=== PATIENT | female | born 1990 | race Caucasian/White ===

== ENCOUNTER 2018-01-02 13:11 | Inpatient (IN) | payer OTHER ==
[2018-01-02] MEDS ORDERED: NS 0.9% 1000 ML*IV.FLUID IV ONE (13:38)
--- NOTE | 2018-01-02 13:51 | ED ---
Substance Abuse/Use - HPI Summary HPI Summary: This pt is a 27 y/o female presenting to [facility] via EMS for detox. Per EMS, pt had vodka and snorted Xanax today. Pt states she last drank alcohol shortly before EMS picked her up. She reports [place] prescribes her Xanax. She notes she called EMS because she wants help. Additionally reports SI thoughts, stating "if no one helps me I'm going to off myself." Denies SI plan, HI thoughts/plan. Pt is requesting rehab and states "I want help." Pt reports 2 days ago she fell out of a two story window while drinking and had a head strike. She c/o lower back pain for the past 2 days s/p fall. Pt has not seen her PCP for her back pain. Additionally notes abd pain. No fever. LMP: last one was 5 months ago. Pt is unsure if there's a possibility of . PMHx ovarian cyst. Vital signs while in the room: BP is 123/78, HR is 101, O2 sat is 96. - History Of Current Complaint Chief Complaint: EDDetoxRequest Stated Complaint: ETOH Time Seen by Provider: 01/02/18 13:37 Hx Obtained From: Patient, EMS ?: No - states LMP was 5 months ago Onset/Duration of Drug/ETOH Abuse: Days Ingestion History: Type/Name Of Drug - Vodka and Xanax (snorted xanax) Overdose Characteristics: Oral - alcohol, Other - snorted Xanax Timing Of Abuse: Daily - Alcohol Severity Initially: Moderate Severity Currently: Severe Character: Anxious Aggravating Factor(s): Other - alcohol and Xanax use Alleviating Factor(s): Nothing Associated Signs And Symptoms: Other: - anxious, back pain, abd pain Related Hx: Suicidal, Suicidal: Thoughts, Suicidal: Gesture - Allergies/Home Medications Allergies/Adverse Reactions: Allergies Allergy/AdvReac Type Severity Reaction Status Date / Time No Known Allergies Allergy Verified 01/02/18 13:33 Home Medications: Home Medications Acetaminophen TAB* [Tylenol TAB*] 650 mg PO Q6H PRN 01/02/18 [History Confirmed 01/02/18] Buprenorphine HCl/Naloxone HCl [Suboxone 8 mg-2 mg Sl Film] 0.5 film SL 1800 [History Confirmed 01/02/18] Buprenorphine HCl/Naloxone HCl [Suboxone 8 mg-2 mg Sl Film] 1 film SL QAM [History Confirmed 01/02/18] Folic Acid 1 tab PO DAILY 01/02/18 [History Confirmed 01/02/18] Gabapentin CAP(*) [Neurontin 100 mg CAP(*)] 500 mg PO TID 01/02/18 [History Confirmed 01/02/18] Ibuprofen TAB* [Advil TAB*] 400 mg PO Q6H PRN 01/02/18 [History Confirmed ] Quetiapine Fumarate 1 tab PO BEDTIME 01/02/18 [History Confirmed 01/02/18] hydrOXYzine HCL TAB* [Atarax TAB 50 MG *] 1 tab PO Q6H PRN 01/02/18 [History Confirmed 01/02/18] levETIRAcetam [Levetiracetam] 500 mg PO BID 01/02/18 [History Confirmed 01/02/18 ] PMH/Surg Hx/FS Hx/Imm Hx Previously Healthy: No - bulimia, substance abuse Endocrine/Hematology History: Denies: Hx Anticoagulant Therapy, Hx Diabetes, Hx Thyroid Disease Cardiovascular History: Denies: Hx Hypertension, Hx Pacemaker/ICD Respiratory History: Denies: Hx Asthma, Hx Chronic Obstructive Pulmonary Disease (COPD) GI History: Denies: Hx Ulcer History: Denies: Hx Renal Disease Neurological History: Reports: Hx Headaches, Hx Seizures - on keppra Denies: Hx Dementia Psychiatric History: Reports: Hx Eating Disorder, Hx Depression, Hx Substance Abuse - ETOH - Surgical History Surgery Procedure, Year, and Place: T&A. EAR TUBES Infectious Disease History: No Infectious Disease History: Denies: Hx Clostridium Difficile, Hx Hepatitis, Hx Human Immunodeficiency Virus (HIV), Traveled Outside the [place] in Last 30 Days - Family History Known Family History: Negative: Cardiac Disease, Hypertension, Diabetes - Social History Alcohol Use: Daily Alcohol Amount: last time was today Substance Use Type: Reports: Cocaine, Marijuana Substance Use Comment - Amount & Last Used: snorted Xanax today Smoking Status (MU): Current Every Day Smoker Review of Systems Negative: Fever, Chills Cardiovascular: Negative Respiratory: Negative Positive: Abdominal Pain Musculoskeletal: Other - low back pain Neurological: Negative Psychological: Other - SI thoughts Positive: Anxious. Negative: Other - SI plan, HI thoughts/plan All Other Systems Reviewed And Are Negative: Yes Physical Exam - Summary Physical Exam Summary: Appearance: Well-appearing, moderate pain distress, well-nourished Skin: Warm, color reflects adequate perfusion, dry. Scab on mons pubis with surrounding redness about 3 cm. Missing pubic hair in that area. Head: Normal Head/Face inspection, atraumatic Eyes: Conjunctiva clear, PERRL, EOMI ENT: Normal inspection Neck: Supple, no nodes, no JVD, nontender spines Respiratory: Lungs clear, normal breath sounds, no respiratory distress Cardio: Tachycardic, No murmur, pulses normal, brisk capillary refill, ribs nontender on palpation Abdomen: Soft, nontender, no masses, no spleen tip Bowel sounds: Present Musculoskeletal: Strength Intact/ROM intact, no calf tenderness, no edema, back pain is at right posterior superior iliac crest. Psychological: Anxious Neuro: Alert, O x 3, CN II-XII intact, Motor 5/5, Sensation intact, muscle tone normal, no focal deficit Triage Information Reviewed: Yes Vital Signs On Initial Exam: Initial Vitals Temp Pulse Resp BP Pulse Ox 97.7 F 93 20 90/58 94 01/02/18 13:20 01/02/18 13:20 01/02/18 13:20 01/02/18 13:20 01/02/18 13:20 Vital Signs Reviewed: Yes Diagnostics - Vital Signs Vital Signs Temp Pulse Resp BP Pulse Ox 01/02/18 13:20 97.7 F 93 20 90/58 94 - Laboratory Result Diagrams: 01/02/18 22:19 01/02/18 22:19 Lab Statement: Any lab studies that have been ordered have been reviewed, and results considered in the medical decision making process. - CT Cervical spine CT CT Interpretation: No Acute Changes - IMPRESSION: No fracture of the cervical spine is identified. Dr. Sarmiento has reviewed this report. CT Interpretation Completed By: Radiologist Brain CT CT Interpretation: No Acute Changes - IMPRESSION: No evidence of intracranial mass or hemorrhage is noted. Dr. Sarmiento has reviewed this report. CT Interpretation Completed By: Radiologist Lumbar spine CT CT Interpretation: No Acute Changes - IMPRESSION: No fracture of the lumbar spine is noted. Dr. Sarmiento has reviewed this report. CT Interpretation Completed By: Radiologist - EKG 13:44 Cardiac Rate: Tachycardia - at 104 bpm EKG Rhythm: Sinus Tachycardia ST Segment: Non-Specific - early repolarization Ectopy: None EKG Interpretation: nml AV/IV CT, nml QTc, and nml axis. QTc is 481. EKG Comparison: No Significant Change - compared to prior EKG on 02/12/12. Re-Evaluation - Re-Evaluation First Eval Re-Evaluation Time: 17:05 Change: Improved Comment: Pt is requesting food. Pt will be given food. Negative CTs. Second Eval Re-Evaluation Time: 17:48 Change: Worse Comment: Pt becoming more agitated, tremulous, anxious. States she is having a "panic attack". Will give Ativan 2mg IV and benadryl 50mg IV. 1:[address] Third Eval Re-Evaluation Time: 21:50 Change: Worse Comment: Pt has temp of 101.8 F. Will repeat blood work and order Tylenol. Will start WAM protocol. Back pain has not changed in location or description. CT of the area that is painful is negative. Fourth Eval Re-Evaluation Time: 21:56 Change: Worse Comment: Pt reports she does not feel well. Regular medications and acetaminophen will be given now. Fifth Eval Re-Evaluation Time: 23:00 Change: Worse Comment: Charge nurse Chasity states that pt meets WAM protocol for WD, score is 11, and nurse requests more sedation. Ativan 2mg IV ordered. Will consult Dr. Ghosh. Arms reach 1:[address]. Pt states she is not suicidal now. Temp is decreased to 99.8. Pt is tachy 112. BP 106/71. O2 sat 97% Course/Dx - Course Course Of Treatment: Pt medications reviewed this visit. Pt is a 27 y/o female requesting detox but states she has low back pain and fell out of two story window 2 days ago and has not sought medical attention. Brain CT shows no evidence of intracranial mass or hemorrhage is noted. Cervical spine CT reveals no fracture. Lumbar spine CT shows no fracture. Urine toxicology shows positive cocaine, positive cannabinoids, and alcohol serum of 354. Pt was given banana bag, nicotine inhaler, Ativan (total 3 mg IV), Benadryl 50mg IV. On re-eval at 21:50, pt has temp of 101.8 F. Will repeat blood work and order Tylenol. Blood culture, lactate, repeat CBC, CMP and alcohol leve done. Will start WAM protocol. Pt given her usual medications of keppra, gabapentin, seroquel. Pt given additional ativan 2mg IV for WAM score 11. Temp returned to normal. Pt had no new medical complaints, but remains tachycardic, tremulous. Pt admitted to Dr. Ghosh for alcohol withdrawal acute, at this time. - Diagnoses Provider Diagnoses: Alcohol intoxication, Back pain, Substance abuse, Fever, Fall, Alcohol withdrawal delirium, acute, hyperactive, Suicidal ideation - Physician Notifications Discussed Care Of Patient With: Luna Ghosh Time Discussed With Above Provider: 23:35 Instructed by Provider To: Admit As Inpatient - Critical Care Time Critical Care Time: 30-74 min - 30 minutes, IV medications for psychiatric patient, pt going through alcohol withdrawal Discharge - Sign-Out/Discharge Documenting (check all that apply): Patient Departure Signing out patient TO: Navi Holland - Pt not signed out. Pt admitted to Dr. Ghosh. - Discharge Plan Condition: Stable Disposition: ADMITTED TO [facility] - Billing Disposition and Condition Condition: STABLE Disposition: Admitted to [facility] - Attestation Statements Document Initiated by Sd: Yes Documenting Scribe: Leann Kelly Provider For Whom Sd is Documenting (Include Credential): Dr. Kelly Sarmiento MD Scribe Attestation: Leann Suarez scribed for Dr. Kelly Sarmiento MD on 01/03/18 at 0336. Scribe Documentation Reviewed: Yes Provider Attestation: The documentation as recorded by the Leann garcia accurately reflects the service I personally performed and the decisions made by me, Dr. Kelly Sarmiento MD
[2018-01-02] MEDS ORDERED: LORazepam INJ* 2 MG/ML 1 ML VIAL IV PUSH ONE ×3 (13:53→23:04)
[2018-01-02] MEDS ORDERED: Thiamine IV 100 MG, Folic Acid IV* 1 MG, Multiple Vitamin IV ADULT* 10 ML in D5NS 0.9% ... IV ONE (13:54)
[2018-01-02] MEDS ORDERED: Mouth Piece, Nicotine* 1 EACH CARTRIDGE INH PRN (13:56)
[2018-01-02] MEDS: Nicotine Inhaler* 10 MG AMP INH PRN ×2 (14:43→22:14)
[2018-01-02] MEDS: Mouth Piece, Nicotine* 1 EACH CARTRIDGE INH PRN (14:43)
[2018-01-02 14:44] LABS: ABS Basophils 0.1 10^3/ul (0-0.2); ABS Eosinophils 0.1 10^3/ul (0-0.6); ABS Lymphocytes 2.6 10^3/ul (1.0-4.8); ABS Monocytes 0.6 10^3/ul (0-0.8); ABS Neutrophils 2.6 10^3/ul (1.5-7.7); ABS Nucleated RBC 0 10^3/ul; Hematocrit 41 % (35-47); Hemoglobin 14.3 g/dl (12.0-16.0); Lymphocyte % 43.4 % (25-47); Mean Corpuscular HGB Conc 35 g/dl (31-36); Mean Corpuscular Hemoglobin 31 pg (27-31); Mean Corpuscular Volume 89 fL (80-97); Mean Platelet Volume 7.5 um3 (7.4-10.4); Nucleated Red Blood Cells % 0.2; Platelet Count 497 10^3/ul (150-450); Red Cell Distribution Width 16 % (10.5-15); White Blood Count 5.9 10^3/ul (3.5-10.8)
[2018-01-02 14:45] LABS: Urine Appearance Clear; Urine Blood Negative (Negative); Urine Color Straw; Urine Ketones Negative (Negative); Urine Protein Negative (Negative); Urine Specific Gravity 1.002 (1.010-1.030); Urine Urobilinogen Negative (Negative)
--- NOTE | 2018-01-02 14:46 | RAD ---
Indication: Headaches, fall CT of the brain was performed without IV contrast. Ventricular structures are midline. No midline shift is noted. The extra-axial spaces are unremarkable. There is no evidence of intracranial mass or hemorrhage. No other high or low density lesions identified. Mastoid air cells and paranasal sinuses are otherwise unremarkable. IMPRESSION: No evidence of intracranial mass or hemorrhage is noted.
[2018-01-02 14:48] LABS: INR 0.87 (0.77-1.02)
--- NOTE | 2018-01-02 14:48 | RAD ---
Indication: Fall, neck injury. CT of the cervical spine was obtained in the axial plane. Sagittal and coronal reconstructed images were obtained. The skull base demonstrates mastoid air cells to be well aerated. No fracture is noted. The C1 ring is intact without evidence of fracture. The remainder of the vertebral bodies appear normal in height and alignment. No fracture is identified. No evidence of facet malalignment is noted. The spinous processes demonstrates no evidence of fracture. The lung apices are grossly unremarkable. Soft tissues of the neck are unremarkable. IMPRESSION: No fracture of the cervical spine is identified.
[2018-01-02 14:57] LABS: EGFR Non-African American 117.7 (>60)
--- NOTE | 2018-01-02 15:01 | RAD ---
Indication: Pain, back injury. CT of the lumbar spine was obtained in the axial plane. Sagittal and coronal reconstructed images were obtained. The vertebral bodies appear normal in height. No evidence of compression fracture is noted. The 11th and 12th ribs posteriorly show no fracture. The vertebral bodies appear normal in height. No evidence of compression fracture is noted. No evidence of facet malalignment is noted. No evidence of disc protrusion is noted at any of the lumbar disc levels. IMPRESSION: No fracture of the lumbar spine is noted.
[2018-01-02] MEDS ORDERED: diPHENhydraMINE IV* 50 MG/ML 1 ml VIAL (BENADRYL) IV ONE (17:46)
[2018-01-02] MEDS ORDERED: levETIRAcetam TAB* 500 MG PO ONE (22:00)
[2018-01-02] MEDS ORDERED: QUEtiapine TAB* 100 MG PO ONE (22:00)
[2018-01-02] MEDS ORDERED: Acetaminophen TAB* 325 MG PO ONE (22:00)
[2018-01-02] MEDS ORDERED: Gabapentin CAP(*) 100 MG PO ONE (22:02)
[2018-01-02 22:47] LABS: ABS Basophils 0.3 10^3/ul (0-0.2); ABS Eosinophils 0 10^3/ul (0-0.6); ABS Lymphocytes 3.3 10^3/ul (1.0-4.8); ABS Neutrophils 2.8 10^3/ul (1.5-7.7); ABS Nucleated RBC 0 10^3/ul; Eosinophil % 0.5 % (0-6); Hematocrit 35 % (35-47); Hemoglobin 11.8 g/dl (12.0-16.0); Lymphocyte % 44.6 % (25-47); Mean Corpuscular HGB Conc 34 g/dl (31-36); Mean Corpuscular Hemoglobin 30 pg (27-31); Mean Corpuscular Volume 90 fL (80-97); Nucleated Red Blood Cells % 0.1; Platelet Count 395 10^3/ul (150-450); Red Blood Count 3.91 10^6/ul (4.00-5.40); Red Cell Distribution Width 16 % (10.5-15); White Blood Count 7.4 10^3/ul (3.5-10.8)
[2018-01-02 23:16] LABS: EGFR Non-African American 84.8 (>60)
[2018-01-03] MEDS ORDERED: Thiamine IV* 100 MG/ML 2 ML VIAL IM ONE (00:14)
[2018-01-03] MEDS ORDERED: Thiamine IV* 100 MG, Folic Acid IV* 1 MG, Multiple Vitamin IV ADULT* 10 ML in NS 0.9% 1... IV ONE (00:15)
[2018-01-03] MEDS ORDERED: LORazepam INJ* 2 MG/ML 1 ML VIAL IV PUSH SCH (01:00)
[2018-01-03] MEDS: NS 0.9% 1000 ML* 1,000 ML IV SCH ×3 (01:50→17:38)
--- NOTE | 2018-01-03 01:58 | HP ---
HISTORY AND PHYSICAL: DATE OF ADMISSION: 01/03/18 TIME OF EVALUATION: 0000 PRIMARY CARE PHYSICIAN: Unknown. CHIEF COMPLAINT: Here for detox. HISTORY OF PRESENT ILLNESS: Unable to obtain due to the patient's somnolence and recently getting Ativan. According to the ER nurse and the [facility] where my information is obtained is she fell 2 days ago out of a 2 story window while drinking. Today, she has had vodka and snorted Xanax and complaining of back pain today. She has been in the emergency room for 11 hours and on reevaluation , her WAM score scored 11 and due to this she was referred to the hospitalist service for further evaluation. She has been given Seroquel, 2 L of fluid, a banana bag, Ativan 5 mg, Keppra 500 mg, gabapentin 500 mg, IV Benadryl and Tylenol. Referred to the hospitalist service for further evaluation. On my evaluation, the patient wakes up to tactile stimulation. Denies any pain, unable to get any other remaining full interaction with her. Also of note she reported suicidal ideation to the staff in the emergency room which she later denies, but she does have a 1:1 in the room currently. PAST MEDICAL HISTORY: 1. Bulimia. 2. History of alcohol abuse. 3. Polysubstance abuse. MEDICATIONS: According to the med rec: 1. Suboxone 8 mg-2 mg sublingual, 0.5 mg and sublingual 1800 one film in the morning. 2. Hydroxyzine 1 tab q.6 hours. 3. Keppra 500 mg p.o. b.i.d. 4. Folic acid 1 tab p.o. b.i.d. 5. Seroquel 300 mg at bedtime. 6. Gabapentin 500 mg p.o. t.i.d. 7. Ibuprofen 100 mg q.6 hours as needed. 8. Tylenol 650 mg every 6 hours as needed. ALLERGIES: No known drug allergies. FAMILY HISTORY: Unknown. SOCIAL HISTORY: Unknown. REVIEW OF SYSTEMS: Unable to obtain due to the patient's intoxication. PHYSICAL EXAMINATION GENERAL: The patient is sleeping, does awake to tactile stimulation, stuporous appearing. VITAL SIGNS: Temperature 77.6, pulse rate 111, respiratory rate 22, oxygen saturation 98% on room air, blood pressure 107/72. HEENT: Head: Normocephalic. Pupils are pinpoint and reactive. Conjunctivae are injected. NECK: Supple. No lymphadenopathy. RESPIRATORY: Diminished breath sounds. Poor respiratory effort. No wheezing, rhonchi, or rales. CARDIAC: Tachycardia, soft systolic murmur heard throughout. ABDOMEN: Soft, nontender, nondistended. EXTREMITIES: No clubbing, cyanosis, or edema. +1 DPs. NEUROLOGIC: The patient awakes to voice, able to say she does not have any pain , moving all extremities, but unable to assess an accurate neuro status. LABORATORY DATA: White count 7.4, hemoglobin 11.8, hematocrit 35, platelets 395. INR 0.877. Sodium 138, potassium 3.6, chloride 104, bicarb 26, BUN 10, creatinine 0.81, glucose 87. CRP is less than 1. Urine negative, tox screen positive for cocaine, cannabinoids. Initial alcohol is 354, repeat hours later is 20. RADIOGRAPHIC DATA: Head CT, no evidence of acute interval mass or hemorrhage is noted. Cervical spine CT, no fracture of the cervical spine. Lumbar spine CT. No fracture of the lumbar spine is noted. EKG shows sinus tachycardia at the rate of 104. QTC 481. ASSESSMENT: This is a 27-year-old female with past medical history of alcohol abuse and polysubstance abuse, who presents to the emergency room requesting detox. 1. Alcohol withdrawal. Assessment: The patient has been in the emergency room from last 12 hours and now is actively withdrawing with a WAM score of 11. She is stuporous but does awake to tactile stimulation and answers questions appropriately, but limited interaction. Plan: We will continue her on the WAM protocol. Ativan as needed. Continue her on thiamin, folic acid and multivitamin. Follow up with social work for potential rehab. 2. Suicidal ideation. Assessment: Unable to determine if she still remains suicidal. Plan: Continue with 1:1 if she is showing any signs of suicidal ideation, recommend Psychiatry evaluation. 3. Chronic medical problems: She does have medication reconciliation in place. We will continue this as long as she is alert enough to swallow pills. 4. FEN: Regular diet with IV fluids. 5. DVT prophylaxis: The patient scores 0. We will encourage ambulation when she is awake enough. If she is willing hospitalization, we will recommend chronic anticoagulation if she is limited with her mobility. 6. Code status: Full code. PATIENT TIME: Greater than 60 minutes was spent during the history and physical , more than half the time spent in direct patient contact and critical care time. [id number]/[facility] #: [id number] MIKE
[2018-01-03 07:00] LABS: ABS Basophils 0.1 10^3/ul (0-0.2); ABS Eosinophils 0.1 10^3/ul (0-0.6); ABS Lymphocytes 3.5 10^3/ul (1.0-4.8); ABS Neutrophils 2.9 10^3/ul (1.5-7.7); ABS Nucleated RBC 0 10^3/ul; Eosinophil % 1.5 % (0-6); Hematocrit 33 % (35-47); Hemoglobin 11.2 g/dl (12.0-16.0); Lymphocyte % 46.3 % (25-47); Mean Corpuscular HGB Conc 34 g/dl (31-36); Mean Corpuscular Hemoglobin 30 pg (27-31); Mean Corpuscular Volume 89 fL (80-97); Nucleated Red Blood Cells % 0.1; Platelet Count 349 10^3/ul (150-450); Red Blood Count 3.73 10^6/ul (4.00-5.40); Red Cell Distribution Width 16 % (10.5-15); White Blood Count 7.7 10^3/ul (3.5-10.8)
[2018-01-03 07:20] LABS: EGFR Non-African American 72.3 (>60)
[2018-01-03] MEDS: Buprenorphine/Naloxone 8-2 MG SL TAB* 1 TAB SL SCH ×2 (08:26→17:38)
[2018-01-03] MEDS: Gabapentin CAP(*) 100 MG PO SCH ×3 (08:27→19:42)
[2018-01-03] MEDS: Thiamine TAB* 100 MG TAB PO SCH (08:27)
[2018-01-03] MEDS: Gabapentin CAP(*) 400 MG PO SCH ×3 (08:27→19:41)
[2018-01-03] MEDS: Multivitamins/Minerals TAB PO SCH (08:27)
[2018-01-03] MEDS: levETIRAcetam TAB* 500 MG PO SCH ×2 (08:28→19:41)
[2018-01-03] MEDS: Folic Acid TAB* 1 MG PO SCH (08:28)
[2018-01-03] MEDS: Ondansetron INJ* 2 MG/ML VIAL IV PRN ×3 (08:29→22:49)
[2018-01-03] MEDS: LORazepam INJ* 2 MG/ML 1 ML VIAL IV PUSH SCH ×7 (09:27→22:49)
[2018-01-03] MEDS: Nicotine Inhaler* 10 MG AMP INH PRN (09:33)
[2018-01-03] MEDS: Mouth Piece, Nicotine* 1 EACH CARTRIDGE INH PRN (09:33)
[2018-01-03] MEDS: hydrOXYzine HCL TAB* 50 MG PO PRN (13:37)
--- NOTE | 2018-01-03 15:47 | PN ---
Subjective Date of Service: 01/03/18 Interval History: patient tearful at the time of exam stating she wants help for alcohol and drug addictions. States that she wants to go to inpatient rehab to get help. c/o pain to right flank area and left lower ribs, right flank pain worse with palpation. Patient reported fall from a second story window. reports that she feels dizzy and anxious, denies visual and auditory hallucinations. Denies chest pain or shortness of breath. Denies abd pain. N/V/D. patient currently denies suicidal or homicidal ideation. Family History: Unchanged from Admission Social History: Unchanged from Admission Past Medical History: Unchanged from Admission Objective Active Medications: Acetaminophen (Tylenol Tab*) 650 mg PO Q4H PRN PRN Reason: FEVER/PAIN Buprenorphine/Naloxone (Suboxone 8-2 Mg Sl Tab*) 0.5 tab.sl SL 1800 JOYCE Buprenorphine/Naloxone (Suboxone 8-2 Mg Sl Tab*) 1 tab.sl SL QAM [facility] Last Admin: 01/03/18 08:26 Dose: 1 tab.sl Device (Nicotine Mouth Piece*) 1 each INH .USE WITH NICOTROL PRN PRN Reason: CRAVING Last Admin: 01/03/18 09:33 Dose: 1 each Folic Acid (Folvite Tab*) 1 mg PO DAILY [facility] Last Admin: 01/03/18 08:28 Dose: 1 mg Gabapentin (Neurontin Cap(*)) 100 mg PO TID [facility] Last Admin: 01/03/18 13:37 Dose: 100 mg Gabapentin (Neurontin Cap(*)) 400 mg PO TID [facility] Last Admin: 01/03/18 13:37 Dose: 400 mg Hydroxyzine HCl (Atarax Tab*) 50 mg PO Q6H PRN PRN Reason: AGITATION Last Admin: 01/03/18 13:37 Dose: 50 mg Sodium Chloride (Ns 0.9% 1000 Ml*) 1,000 mls @ 150 mls/hr IV PER RATE [facility] Last Admin: 01/03/18 08:32 Dose: 150 mls/hr Ibuprofen (Motrin Tab*) 400 mg PO Q6H PRN PRN Reason: PAIN Levetiracetam (Keppra Tab*) 500 mg PO BID [facility] Last Admin: 01/03/18 08:28 Dose: 500 mg Lorazepam (Ativan Inj*) 0 - 8 mg IV PUSH .PER [facility] PROTOCOL [facility]; Protocol Last Admin: 01/03/18 13:36 Dose: 4 mg Multivitamins/Minerals (Theragran/Minerals Tab*) 1 tab PO DAILY [facility] Last Admin: 01/03/18 08:27 Dose: 1 tab Nicotine (Nicotine Inhaler*) 10 mg INH Q2H PRN PRN Reason: CRAVING Last Admin: 01/03/18 09:33 Dose: 10 mg Nicotine (Nicotine Patch 21 Mg/24 Hr*) 1 patch TRANSDERM DAILY@0800 [facility] Ondansetron HCl (Zofran Inj*) 4 mg IV Q4H PRN PRN Reason: NAUSEA/VOMITING Last Admin: 01/03/18 13:36 Dose: 4 mg Pharmacy Profile Note (Nicotine Patch Removal Note*) 1 note FOLLOW UP 0600 [facility] Quetiapine Fumarate (Seroquel Tab*) 200 mg PO BEDTIME [facility] Thiamine HCl (Vitamin B-1 Tab*) 100 mg PO DAILY [facility] Last Admin: 01/03/18 08:27 Dose: 100 mg Vital Signs - 8 hr 01/03/18 01/03/18 01/03/18 08:26 08:27 09:03 Temperature 98.1 F Pulse Rate 80 Respiratory 14 16 18 Rate Blood Pressure 116/81 (mmHg) O2 Sat by Pulse 100 Oximetry 01/03/18 01/03/18 01/03/18 09:27 10:38 11:03 Temperature 98.4 F Pulse Rate 98 Respiratory 18 16 18 Rate Blood Pressure 124/78 (mmHg) O2 Sat by Pulse 98 Oximetry 01/03/18 01/03/18 01/03/18 11:11 12:40 13:12 Temperature 97.1 F Pulse Rate 91 Respiratory 22 16 20 Rate Blood Pressure 115/77 (mmHg) O2 Sat by Pulse 100 Oximetry 01/03/18 01/03/18 01/03/18 13:36 13:37 14:31 Temperature Pulse Rate Respiratory 22 16 20 Rate Blood Pressure (mmHg) O2 Sat by Pulse Oximetry Oxygen Devices in Use Now: None Appearance: anxious, hand with tremors Eyes: No Scleral Icterus Ears/Nose/Mouth/Throat: Clear Oropharnyx, Mucous Membranes Moist Neck: NL Appearance and Movements; NL JVP, Trachea Midline Respiratory: Symmetrical Chest Expansion and Respiratory Effort, Clear to Auscultation Cardiovascular: NL Sounds; No Murmurs; No JVD, No Edema Abdominal: NL Sounds; No Tenderness; No Distention Extremities: No Edema, No Clubbing, Cyanosis Skin: No Rash or Ulcers Neurological: Alert and Oriented x 3 Nutrition: Taking PO's Result Diagrams: 01/03/18 06:22 01/03/18 06:23 Assess/Plan/Problems-Billing Assessment: Ms. Perez 27 y.o female with a pmhx significant for ETOH and poly substance abuse who presented to the ER for detox. Patient with suicidial Ideation in the ER. Patient was scoring on WAM so she was referred to the hospitalist team for admission. - Patient Problems (1) Polysubstance abuse Current Visit: Yes Status: Acute Code(s): F19.10 - OTHER PSYCHOACTIVE SUBSTANCE ABUSE, UNCOMPLICATED SNOMED Code(s): 225155581 Comment: Continue WAM protocol (2) Alcohol abuse Current Visit: Yes Status: Acute Code(s): F10.10 - ALCOHOL ABUSE, UNCOMPLICATED SNOMED Code(s): 71450138 Comment: Scoring on WAM - Continue WAM protocol -SW consult to assist with getting into inpatient rehab. (3) DVT prophylaxis Current Visit: Yes Status: Acute Code(s): OHW2091 - SNOMED Code(s): 853534009 Comment: ambulation (4) Full code status Current Visit: Yes Status: Acute Code(s): Z78.9 - OTHER SPECIFIED HEALTH STATUS SNOMED Code(s): 927399518 Status and Disposition: inpatient
--- NOTE | 2018-01-03 18:07 | RAD ---
EXAM: CT Chest Without Intravenous Contrast CLINICAL HISTORY: 27 years old, female; Pain; Other: Back pain; Patient HX: Back and rib pain S/P fall 3 days ago, pt detoxing from ETOH use. ; Additional info: Fall out of 2nd story window, right flank pain, TECHNIQUE: Axial computed tomography images of the chest without intravenous contrast. All CT scans at this facility use at least one of these dose optimization techniques: automated exposure control; mA and/or kV adjustment per patient size (includes targeted exams where dose is matched to clinical indication); or iterative reconstruction. Coronal and sagittal reformatted images were created and reviewed. COMPARISON: No relevant prior studies available. FINDINGS: Lungs: Mild atelectasis in the medial right middle lobe. Mild bibasilar dependent atelectasis. Pleural space: Unremarkable. No pneumothorax. No significant effusion. Heart: Unremarkable. No cardiomegaly. No significant pericardial effusion. Bones/joints: Minimal dextrocurvature to the thoracic spine. No acute fracture. No dislocation. Soft tissues: Unremarkable. Vasculature: Unremarkable. No thoracic aortic aneurysm. Lymph nodes: Unremarkable. No enlarged lymph nodes. IMPRESSION: No acute findings. EXAM: CT Abdomen and Pelvis Without Intravenous Contrast CLINICAL HISTORY: 27 years old, female; Pain; Other: Back pain; Patient HX: Back and rib pain S/P fall 3 days ago, pt detoxing from ETOH use. ; Additional info: Fall out of 2nd story window, right flank pain, TECHNIQUE: Axial computed tomography images of the abdomen and pelvis without intravenous contrast. All CT scans at this facility use at least one of these dose optimization techniques: automated exposure control; mA and/or kV adjustment per patient size (includes targeted exams where dose is matched to clinical indication); or iterative reconstruction. Coronal and sagittal reformatted images were created and reviewed. COMPARISON: No relevant prior studies available. FINDINGS: Lung bases: Unremarkable. No mass. No consolidation. ABDOMEN: Liver: Unremarkable. Gallbladder and bile ducts: Unremarkable. No calcified stones. No ductal dilation. Pancreas: Unremarkable. No ductal dilation. Spleen: Unremarkable. No splenomegaly. Adrenals: Unremarkable. No mass. Kidneys and ureters: Unremarkable. No obstructing stones. No hydronephrosis. Stomach and bowel: Unremarkable. No obstruction. No mucosal thickening. PELVIS: Appendix: No findings to suggest acute appendicitis. Bladder: Unremarkable. No stones. Reproductive: Unremarkable as visualized. ABDOMEN and PELVIS: Intraperitoneal space: Unremarkable. No free air. No significant fluid collection. Bones/joints: Minimal levocurvature of lumbar spine. No acute fracture. No dislocation. Soft tissues: Unremarkable. Vasculature: Unremarkable. No abdominal aortic aneurysm. Lymph nodes: Unremarkable. No enlarged lymph nodes. IMPRESSION: No acute findings.
[2018-01-03] MEDS ORDERED: Nicotine PATCH 21 MG/24 HR* PATCH ONE (19:40)
[2018-01-03] MEDS: Nicotine PATCH 21 MG/24 HR* PATCH TRANSDERM SCH (19:42)
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
[2018-01-03] MEDS: QUEtiapine TAB* 100 MG PO SCH (22:49)
[2018-01-03] MEDS: Ibuprofen TAB* 400 MG PO PRN (23:01)
[2018-01-04] MEDS: Nicotine Patch Removal NOTE FOLLOW UP SCH (04:46)
[2018-01-04] MEDS: NS 0.9% 1000 ML* 1,000 ML IV SCH (04:46)
[2018-01-04] MEDS: LORazepam INJ* 2 MG/ML 1 ML VIAL IV PUSH SCH ×7 (06:02→23:26)
[2018-01-04] MEDS: Ondansetron INJ* 2 MG/ML VIAL IV PRN ×2 (06:02→13:02)
[2018-01-04] MEDS: Buprenorphine/Naloxone 8-2 MG SL TAB* 1 TAB SL SCH ×2 (08:01→17:34)
[2018-01-04] MEDS: Gabapentin CAP(*) 100 MG PO SCH ×3 (08:02→21:15)
[2018-01-04] MEDS: Gabapentin CAP(*) 400 MG PO SCH ×3 (08:02→21:15)
[2018-01-04] MEDS: Thiamine TAB* 100 MG TAB PO SCH (08:03)
[2018-01-04] MEDS: Multivitamins/Minerals TAB PO SCH (08:03)
[2018-01-04] MEDS: Folic Acid TAB* 1 MG PO SCH (08:03)
[2018-01-04] MEDS: Nicotine PATCH 21 MG/24 HR* PATCH TRANSDERM SCH (08:04)
[2018-01-04] MEDS: levETIRAcetam TAB* 500 MG PO SCH ×2 (08:04→21:16)
[2018-01-04] MEDS: Acetaminophen TAB* 325 MG PO PRN (08:10)
[2018-01-04] MEDS: Clindamycin CAP* 150 MG PO SCH ×2 (13:01→17:36)
[2018-01-04] MEDS ORDERED: Clindamycin CAP* 150 MG PO SCH (14:00)
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
--- NOTE | 2018-01-04 14:14 | PN ---
Subjective Date of Service: 01/04/18 Interval History: Patient continues to be anxious and engaging in phrenetic movement while talking. Patient states she feels very tremulous and has been nauseated without vomiting. Patient denies SI/HI. Patient remains committed to alcohol rehab. Patient denies CP, SOB, abdominal pain, diarrhea, dysuria, or other pain. Patient states she was recently hospitalized at [facility] for folliculitis in her groin and was prescribed clindamycin for 7 days which she had take 4 days of so far. Family History: Unchanged from Admission Social History: Unchanged from Admission Past Medical History: Unchanged from Admission Objective Active Medications: Acetaminophen (Tylenol Tab*) 650 mg PO Q4H PRN PRN Reason: FEVER/PAIN Last Admin: 01/04/18 08:10 Dose: 650 mg Buprenorphine/Naloxone (Suboxone 8-2 Mg Sl Tab*) 0.5 tab.sl SL 1800 [facility] Last Admin: 01/03/18 17:38 Dose: 0.5 tab.sl Buprenorphine/Naloxone (Suboxone 8-2 Mg Sl Tab*) 1 tab.sl SL QAM [facility] Last Admin: 01/04/18 08:01 Dose: 1 tab.sl Clindamycin HCl (Cleocin Cap*) 300 mg PO Q6HR [facility] Last Admin: 01/04/18 13:01 Dose: 300 mg Device (Nicotine Mouth Piece*) 1 each INH .USE WITH NICOTROL PRN PRN Reason: CRAVING Last Admin: 01/03/18 09:33 Dose: 1 each Folic Acid (Folvite Tab*) 1 mg PO DAILY [facility] Last Admin: 01/04/18 08:03 Dose: 1 mg Gabapentin (Neurontin Cap(*)) 100 mg PO TID [facility] Last Admin: 01/04/18 08:02 Dose: 100 mg Gabapentin (Neurontin Cap(*)) 400 mg PO TID [facility] Last Admin: 01/04/18 08:02 Dose: 400 mg Hydroxyzine HCl (Atarax Tab*) 50 mg PO Q6H PRN PRN Reason: AGITATION Last Admin: 01/03/18 13:37 Dose: 50 mg Ibuprofen (Motrin Tab*) 400 mg PO Q6H PRN PRN Reason: PAIN Last Admin: 01/03/18 23:01 Dose: 400 mg Levetiracetam (Keppra Tab*) 500 mg PO BID [facility] Last Admin: 01/04/18 08:04 Dose: 500 mg Lorazepam (Ativan Inj*) 0 - 8 mg IV PUSH .PER [facility] PROTOCOL [facility]; Protocol Last Admin: 01/04/18 13:02 Dose: 2 mg Multivitamins/Minerals (Theragran/Minerals Tab*) 1 tab PO DAILY [facility] Last Admin: 01/04/18 08:03 Dose: 1 tab Nicotine (Nicotine Inhaler*) 10 mg INH Q2H PRN PRN Reason: CRAVING Last Admin: 01/03/18 09:33 Dose: 10 mg Nicotine (Nicotine Patch 21 Mg/24 Hr*) 1 patch TRANSDERM DAILY@0800 [facility] Last Admin: 01/04/18 08:04 Dose: 1 patch Ondansetron HCl (Zofran Inj*) 4 mg IV Q4H PRN PRN Reason: NAUSEA/VOMITING Last Admin: 01/04/18 13:02 Dose: 4 mg Pharmacy Profile Note (Nicotine Patch Removal Note*) 1 note FOLLOW UP 0600 [facility] Last Admin: 01/04/18 04:46 Dose: 1 note Quetiapine Fumarate (Seroquel Tab*) 200 mg PO BEDTIME [facility] Last Admin: 01/03/18 22:49 Dose: 200 mg Thiamine HCl (Vitamin B-1 Tab*) 100 mg PO DAILY [facility] Last Admin: 01/04/18 08:03 Dose: 100 mg Vital Signs - 8 hr 01/04/18 01/04/18 01/04/18 07:05 07:35 08:00 Temperature 96.6 F Pulse Rate 87 Respiratory 14 16 16 Rate Blood Pressure 109/69 (mmHg) O2 Sat by Pulse 98 98 Oximetry 01/04/18 01/04/18 01/04/18 08:01 08:02 09:08 Temperature 96.9 F Pulse Rate 96 Respiratory 18 18 16 Rate Blood Pressure 126/75 (mmHg) O2 Sat by Pulse 100 Oximetry 01/04/18 01/04/18 01/04/18 09:17 10:01 10:02 Temperature Pulse Rate Respiratory 16 16 16 Rate Blood Pressure (mmHg) O2 Sat by Pulse Oximetry 01/04/18 01/04/18 01/04/18 11:09 12:54 13:02 Temperature 98.2 F 97.6 F Pulse Rate 90 105 Respiratory 15 17 17 Rate Blood Pressure 121/88 130/84 (mmHg) O2 Sat by Pulse 99 Oximetry Oxygen Devices in Use Now: None Appearance: Patient is a 27yo female who appears stated age and is sitting in the bed in NAD. Eyes: No Scleral Icterus, PERRLA Ears/Nose/Mouth/Throat: NL Teeth, Lips, Gums, Clear Oropharnyx, Mucous Membranes Moist Neck: NL Appearance and Movements; NL JVP, Trachea Midline Respiratory: Symmetrical Chest Expansion and Respiratory Effort, Clear to Auscultation Cardiovascular: NL Sounds; No Murmurs; No JVD, RRR, No Edema Abdominal: NL Sounds; No Tenderness; No Distention, No Hepatosplenomegaly Lymphatic: No Cervical Adenopathy Extremities: No Edema, No Clubbing, Cyanosis Skin: No Nodules or Sclerosis, - - Erythematous scabbed area approximately 1cm round on the mons pubis. Neurological: Alert and Oriented x 3, NL Sensation, NL Muscle Strength and Tone , - - Tangential thoughts. Slight tremor. Result Diagrams: 01/03/18 06:22 01/03/18 06:23 Microbiology and Other Data: Microbiology 01/02/18 13:55 Aerobic Blood Culture - Preliminary Blood Venous No Growth Day 2 Anaerobic Blood Culture - Final Not Reportable 01/02/18 22:30 Aerobic Blood Culture - Preliminary Blood Venous No Growth Day 1 Anaerobic Blood Culture - Preliminary No Growth Day 1 01/02/18 22:19 Aerobic Blood Culture - Preliminary Blood Venous No Growth Day 1 Anaerobic Blood Culture - Preliminary No Growth Day 1 Assess/Plan/Problems-Billing Assessment: Ms. Perez 27 y.o female with a pmhx significant for ETOH and poly substance abuse who presented to the ER for detox. Patient with suicidial Ideation in the ER. Patient was scoring on WAM so she was referred to the hospitalist team for admission. Patient continues to score on WAM and is interested to discharge to alcohol rehab. - Patient Problems (1) Polysubstance abuse Current Visit: Yes Status: Acute Code(s): F19.10 - OTHER PSYCHOACTIVE SUBSTANCE ABUSE, UNCOMPLICATED SNOMED Code(s): 899785235 Comment: - Continue WAM protocol - Will need inpatient substance abuse rehab - Patient requests testing for HIV and Hepatitis C due to previous needle sharing. - Positive Urine for Cocaine and Marijuana at admission. - Appreciate psychiatry consult. (2) Alcohol abuse Current Visit: Yes Status: Acute Code(s): F10.10 - ALCOHOL ABUSE, UNCOMPLICATED SNOMED Code(s): 32774006 Comment: - Scoring on WAM - Continue WAM protocol - SW consult to assist with getting into inpatient rehab. (3) DVT prophylaxis Current Visit: Yes Status: Acute Code(s): AWO7903 - SNOMED Code(s): 437783920 Comment: - Ambulation - Low Risk (4) Cellulitis Current Visit: Yes Status: Acute Code(s): L03.90 - CELLULITIS, UNSPECIFIED SNOMED Code(s): 507152872 Comment: - Mild, purulent, associated with folliculitis per patient. - Continue Clindamycin to complete 7 day course. (5) Full code status Current Visit: Yes Status: Acute Code(s): Z78.9 - OTHER SPECIFIED HEALTH STATUS SNOMED Code(s): 167324069 Status and Disposition: inpatient
[2018-01-04] MEDS: Ibuprofen TAB* 400 MG PO PRN (16:18)
--- NOTE | 2018-01-04 20:13 | PN ---
Progress Note - Progress Note Date of Service: 01/04/18 Note: Patient had episode shaking states she is having a seizure - alert and oriented during entire time. WAM score: 13, ativan given.
[2018-01-04] MEDS: QUEtiapine TAB* 100 MG PO SCH (21:15)
[2018-01-05] MEDS: Clindamycin CAP* 150 MG PO SCH ×5 (01:02→23:49)
[2018-01-05] MEDS: Nicotine Patch Removal NOTE FOLLOW UP SCH (05:50)
[2018-01-05] MEDS: Nicotine Inhaler* 10 MG AMP INH PRN (06:44)
[2018-01-05] MEDS: LORazepam INJ* 2 MG/ML 1 ML VIAL IV PUSH SCH ×7 (06:56→23:30)
[2018-01-05] MEDS: Buprenorphine/Naloxone 8-2 MG SL TAB* 1 TAB SL SCH ×2 (08:35→17:46)
[2018-01-05] MEDS: Gabapentin CAP(*) 400 MG PO SCH ×3 (08:36→20:55)
[2018-01-05] MEDS: Thiamine TAB* 100 MG TAB PO SCH (08:36)
[2018-01-05] MEDS: Folic Acid TAB* 1 MG PO SCH (08:36)
[2018-01-05] MEDS: Multivitamins/Minerals TAB PO SCH (08:36)
[2018-01-05] MEDS: levETIRAcetam TAB* 500 MG PO SCH ×2 (08:37→20:55)
[2018-01-05] MEDS: Gabapentin CAP(*) 100 MG PO SCH ×3 (08:37→20:54)
[2018-01-05] MEDS: Nicotine PATCH 21 MG/24 HR* PATCH TRANSDERM SCH (08:38)
[2018-01-05] MEDS: hydrOXYzine HCL TAB* 50 MG PO PRN ×3 (08:38→20:54)
[2018-01-05] MEDS: Acetaminophen TAB* 325 MG PO PRN (15:15)
--- NOTE | 2018-01-05 15:31 | PN ---
Subjective Date of Service: 01/05/18 Interval History: Patient outwardly anxious, walking around unit constantly. Occasional nausea. Patient states groin pain is persistent. Patient denies F/C, abdominal pain, diarrhea. Patient has persistent musculoskeletal pain from fall. Patient expresses frustration with process of getting inpatient rehab. Family History: Unchanged from Admission Social History: Unchanged from Admission Past Medical History: Unchanged from Admission Objective Active Medications: Acetaminophen (Tylenol Tab*) 650 mg PO Q4H PRN PRN Reason: FEVER/PAIN Last Admin: 01/04/18 08:10 Dose: 650 mg Buprenorphine/Naloxone (Suboxone 8-2 Mg Sl Tab*) 0.5 tab.sl SL 1800 [facility] Last Admin: 01/04/18 17:34 Dose: 0.5 tab.sl Buprenorphine/Naloxone (Suboxone 8-2 Mg Sl Tab*) 1 tab.sl SL QAM [facility] Last Admin: 01/05/18 08:35 Dose: 1 tab.sl Clindamycin HCl (Cleocin Cap*) 300 mg PO Q6HR [facility] Last Admin: 01/05/18 05:37 Dose: 300 mg Device (Nicotine Mouth Piece*) 1 each INH .USE WITH NICOTROL PRN PRN Reason: CRAVING Last Admin: 01/03/18 09:33 Dose: 1 each Folic Acid (Folvite Tab*) 1 mg PO DAILY [facility] Last Admin: 01/05/18 08:36 Dose: 1 mg Gabapentin (Neurontin Cap(*)) 100 mg PO TID [facility] Last Admin: 01/05/18 08:37 Dose: 100 mg Gabapentin (Neurontin Cap(*)) 400 mg PO TID [facility] Last Admin: 01/05/18 08:36 Dose: 400 mg Hydroxyzine HCl (Atarax Tab*) 50 mg PO Q6H PRN PRN Reason: AGITATION Last Admin: 01/05/18 08:38 Dose: 50 mg Ibuprofen (Motrin Tab*) 400 mg PO Q6H PRN PRN Reason: PAIN Last Admin: 01/04/18 16:18 Dose: 400 mg Levetiracetam (Keppra Tab*) 500 mg PO BID [facility] Last Admin: 01/05/18 08:37 Dose: 500 mg Lorazepam (Ativan Inj*) 0 - 8 mg IV PUSH .PER [place] PROTOCOL [facility]; Protocol Multivitamins/Minerals (Theragran/Minerals Tab*) 1 tab PO DAILY [facility] Last Admin: 01/05/18 08:36 Dose: 1 tab Nicotine (Nicotine Inhaler*) 10 mg INH Q2H PRN PRN Reason: CRAVING Last Admin: 01/05/18 06:44 Dose: 10 mg Nicotine (Nicotine Patch 21 Mg/24 Hr*) 1 patch TRANSDERM DAILY@0800 [facility] Last Admin: 01/05/18 08:38 Dose: 1 patch Ondansetron HCl (Zofran Inj*) 4 mg IV Q4H PRN PRN Reason: NAUSEA/VOMITING Last Admin: 01/04/18 13:02 Dose: 4 mg Pharmacy Profile Note (Nicotine Patch Removal Note*) 1 note FOLLOW UP 0600 [facility] Last Admin: 01/05/18 05:50 Dose: Not Given Quetiapine Fumarate (Seroquel Tab*) 200 mg PO BEDTIME [facility] Last Admin: 01/04/18 21:15 Dose: 200 mg Thiamine HCl (Vitamin B-1 Tab*) 100 mg PO DAILY [facility] Last Admin: 01/05/18 08:36 Dose: 100 mg Vital Signs - 8 hr 01/05/18 01/05/18 01/05/18 08:35 08:36 08:37 Respiratory 22 22 22 Rate 01/05/18 01/05/18 08:54 09:07 Respiratory 24 24 Rate Oxygen Devices in Use Now: None Appearance: Patient is a 27yo female who appears stated age and is sitting in the bed in mild distress from outward anxiety. Occasionally falling asleep while talking. Eyes: No Scleral Icterus, PERRLA Ears/Nose/Mouth/Throat: NL Teeth, Lips, Gums, Clear Oropharnyx, Mucous Membranes Moist Neck: NL Appearance and Movements; NL JVP, Trachea Midline Respiratory: Symmetrical Chest Expansion and Respiratory Effort, Clear to Auscultation Cardiovascular: NL Sounds; No Murmurs; No JVD, RRR, No Edema Abdominal: NL Sounds; No Tenderness; No Distention, No Hepatosplenomegaly Lymphatic: No Cervical Adenopathy Extremities: No Edema Skin: No Nodules or Sclerosis, - - Stable scab and erythema on mons pubis. Neurological: Alert and Oriented x 3, NL Sensation, NL Muscle Strength and Tone Result Diagrams: 01/03/18 06:22 01/03/18 06:23 Microbiology and Other Data: Microbiology 01/02/18 13:55 Aerobic Blood Culture - Preliminary Blood Venous No Growth Day 2 Anaerobic Blood Culture - Final Not Reportable 01/02/18 22:30 Aerobic Blood Culture - Preliminary Blood Venous No Growth Day 1 Anaerobic Blood Culture - Preliminary No Growth Day 1 01/02/18 22:19 Aerobic Blood Culture - Preliminary Blood Venous No Growth Day 1 Anaerobic Blood Culture - Preliminary No Growth Day 1 Assess/Plan/Problems-Billing Assessment: Ms. Perez 27 y.o female with a pmhx significant for ETOH and poly substance abuse who presented to the ER for detox. Patient with suicidial Ideation in the ER. Patient was scoring on WAM so she was referred to the hospitalist team for admission. Patient continues to score on WAM and is interested to discharge to alcohol rehab. - Patient Problems (1) Polysubstance abuse Current Visit: Yes Status: Acute Code(s): F19.10 - OTHER PSYCHOACTIVE SUBSTANCE ABUSE, UNCOMPLICATED SNOMED Code(s): 183514278 Comment: - Continue WAM protocol- Decreased dose due to sedation. - Will need inpatient substance abuse rehab - Patient requests testing for HIV and Hepatitis C due to previous needle sharing which are pending. - Positive Urine for Cocaine and Marijuana at admission. - Appreciate psychiatry consult. - Difficulty finding facility. (2) Alcohol abuse Current Visit: Yes Status: Acute Code(s): F10.10 - ALCOHOL ABUSE, UNCOMPLICATED SNOMED Code(s): 46361325 Comment: - Scoring on WAM - Continue WAM protocol - SW consult to assist with getting into inpatient rehab. (3) DVT prophylaxis Current Visit: Yes Status: Acute Code(s): WTD4916 - SNOMED Code(s): 433167861 Comment: - Ambulation - Low Risk (4) Cellulitis Current Visit: Yes Status: Acute Code(s): L03.90 - CELLULITIS, UNSPECIFIED SNOMED Code(s): 863242477 Comment: - Mild, purulent, associated with folliculitis per patient. - Continue Clindamycin to complete 7 day course. (5) Full code status Current Visit: Yes Status: Acute Code(s): Z78.9 - OTHER SPECIFIED HEALTH STATUS SNOMED Code(s): 668400687 Status and Disposition: inpatient
[2018-01-05] MEDS: QUEtiapine TAB* 100 MG PO SCH (20:55)
[2018-01-06] MEDS: LORazepam INJ* 2 MG/ML 1 ML VIAL IV PUSH SCH ×6 (01:05→13:51)
[2018-01-06] MEDS: Ibuprofen TAB* 400 MG PO PRN ×2 (01:06→20:59)
[2018-01-06] MEDS: Nicotine Inhaler* 10 MG AMP INH PRN ×2 (05:02→13:50)
[2018-01-06] MEDS: Clindamycin CAP* 150 MG PO SCH ×4 (05:02→23:34)
[2018-01-06] MEDS: Nicotine PATCH 21 MG/24 HR* PATCH TRANSDERM SCH ×2 (05:08→08:20)
[2018-01-06] MEDS: Nicotine Patch Removal NOTE FOLLOW UP SCH (05:08)
[2018-01-06 05:27] LABS: ABS Basophils 0.2 10^3/ul (0-0.2); ABS Eosinophils 0.2 10^3/ul (0-0.6); ABS Lymphocytes 2.1 10^3/ul (1.0-4.8); ABS Monocytes 0.5 10^3/ul (0-0.8); ABS Neutrophils 2.6 10^3/ul (1.5-7.7); ABS Nucleated RBC 0 10^3/ul; Eosinophil % 3.9 % (0-6); Hematocrit 37 % (35-47); Hemoglobin 12.3 g/dl (12.0-16.0); Lymphocyte % 37.3 % (25-47); Mean Corpuscular HGB Conc 34 g/dl (31-36); Mean Corpuscular Hemoglobin 30 pg (27-31); Mean Corpuscular Volume 90 fL (80-97); Mean Platelet Volume 8.1 um3 (7.4-10.4); Nucleated Red Blood Cells % 0.1; Platelet Count 366 10^3/ul (150-450); Red Blood Count 4.08 10^6/ul (4.00-5.40); Red Cell Distribution Width 16 % (10.5-15); White Blood Count 5.7 10^3/ul (3.5-10.8)
[2018-01-06 05:46] LABS: EGFR Non-African American 105.6 (>60)
[2018-01-06] MEDS: Buprenorphine/Naloxone 8-2 MG SL TAB* 1 TAB SL SCH ×2 (08:16→18:22)
[2018-01-06] MEDS: Thiamine TAB* 100 MG TAB PO SCH (08:20)
[2018-01-06] MEDS: Gabapentin CAP(*) 400 MG PO SCH ×3 (08:20→20:18)
[2018-01-06] MEDS: levETIRAcetam TAB* 500 MG PO SCH ×2 (08:20→20:18)
[2018-01-06] MEDS: Multivitamins/Minerals TAB PO SCH (08:20)
[2018-01-06] MEDS: Gabapentin CAP(*) 100 MG PO SCH ×3 (08:21→20:18)
[2018-01-06] MEDS: Folic Acid TAB* 1 MG PO SCH (08:21)
[2018-01-06] MEDS: Ondansetron INJ* 2 MG/ML VIAL IV PRN ×2 (09:32→11:48)
[2018-01-06] MEDS: Polyethylene Glycol 3350* 17 GM PACKET PO PRN (10:36)
[2018-01-06] MEDS: hydrOXYzine HCL TAB* 50 MG PO PRN ×2 (10:36→20:20)
[2018-01-06] MEDS: Senna TAB PO PRN (10:36)
--- NOTE | 2018-01-06 12:11 | CONSULT ---
Identification - Patient Identification Reason for Psychiatric Consultation: Patient Distress -: Patient is a 27 year old, F admitted on 01/03/18. - MHU Identification Employment Status: Unemployed Hx Psychiatric Hospitalization: No History - Objective HPI: Melanie remains anxious and concerned that her Medicaid insurance situation will potentially keep her from getting accepted into rehab. I understand from SW notes that we are still trying to get her Medicaid, which is under a "Restricted" setting, to be amended such that an inpatient rehab would be covered. The patient is somewhat defensive during the exam but reiterates her desire to get sober. She demonstrates pro-social, goal directed behavior and has been contacting an estate planning attorney in [facility] to assist her in seeking alf/visitation rights for her 7-year-old daughter. She continues to deny SI and is tolerating her medications well. Exam Appearance: Well Developed/Nourished Hygiene: Normal Grooming: Fairly Well Kept Psychomotor Activities: Normal Exhibits Abnormal Movement: No Attitude and Relatedness: Cooperative Eye Contact: Good - Speech Quality: Unpressured Latencies: Normal Quantity: Appropriate Patient's Decription of Mood: "Okay" Observed Affect: Fair Affect Consistent with: Euthymia Patient's Thought Process: Coherent Thought Content: No Passive Wish, No Suicidal Planning, No Homicidal Ideation, No Paranoid Ideation Experiencing Hallucinations: No, Sensorium is Clear Type of Hallucinations: Visual: No, Auditory: No, Command: No Level of Consciousness: Alert Orientation: Yes Intact, Yes Orientated to Time, Yes Orientated to Place, Yes Orientated to Person Impulse Control: Tenuous Insight and Judgement: Fair Impression - Impression Clinical Impression: 27 y.o. single, never , white female with a history of polysubstance misuse (opioids, alcohol, cannabis, benzodiazepines, methamphetamines) admitted to medicine for drug detoxification, who made suicidal statements while intoxicated on alcohol and alprazolam in the ED during admission. Inpatient DSM-V Dx: F10.24 Merits Inpatient Hospitalization: No Problem List - MHU Problems Type of Problem: Mood Status of Problem: Resolved Plan - Treatment Plan Treatment Plan: The patient's outpatient medication regimen, including gabapentin, quetiapine, hydroxyzine and Keppra, has been resumed and she is undergoing alcohol detoxification. The patient is pending transfer to an accepting substance abuse rehabilitation facility once her Medicaid issue is resolved. She is not suicidal and there is no rationale for inpatient behavioral health stabilization. Psychiatry is signing off but can be re-consulted in the event of any significant changes in her presentation. Continued Medication Management: Continue Outpt Medication Medications: Current Medications Acetaminophen (Tylenol Tab*) 650 mg PO Q4H PRN PRN Reason: FEVER/PAIN Last Admin: 01/05/18 15:15 Dose: 650 mg Buprenorphine/Naloxone (Suboxone 8-2 Mg Sl Tab*) 0.5 tab.sl SL 1800 [facility] Last Admin: 01/05/18 17:46 Dose: 0.5 tab.sl Buprenorphine/Naloxone (Suboxone 8-2 Mg Sl Tab*) 1 tab.sl SL QAM [facility] Last Admin: 01/06/18 08:16 Dose: 1 tab.sl Clindamycin HCl (Cleocin Cap*) 300 mg PO Q6HR [facility] Last Admin: 01/06/18 05:02 Dose: 300 mg Device (Nicotine Mouth Piece*) 1 each INH .USE WITH NICOTROL PRN PRN Reason: CRAVING Last Admin: 01/03/18 09:33 Dose: 1 each Docusate Sodium (Colace Cap*) 100 mg PO BID [facility] Folic Acid (Folvite Tab*) 1 mg PO DAILY [facility] Last Admin: 01/06/18 08:21 Dose: 1 mg Gabapentin (Neurontin Cap(*)) 100 mg PO TID [facility] Last Admin: 01/06/18 08:21 Dose: 100 mg Gabapentin (Neurontin Cap(*)) 400 mg PO TID [facility] Last Admin: 01/06/18 08:20 Dose: 400 mg Hydroxyzine HCl (Atarax Tab*) 50 mg PO Q6H PRN PRN Reason: AGITATION Last Admin: 01/06/18 10:36 Dose: 50 mg Ibuprofen (Motrin Tab*) 400 mg PO Q6H PRN PRN Reason: PAIN Last Admin: 01/06/18 01:06 Dose: 400 mg Levetiracetam (Keppra Tab*) 500 mg PO BID [facility] Last Admin: 01/06/18 08:20 Dose: 500 mg Lorazepam (Ativan Inj*) 0 - 8 mg IV PUSH .PER [facility] PROTOCOL [facility]; Protocol Last Admin: 01/06/18 11:55 Dose: 2 mg Multivitamins/Minerals (Theragran/Minerals Tab*) 1 tab PO DAILY [facility] Last Admin: 01/06/18 08:20 Dose: 1 tab Nicotine (Nicotine Inhaler*) 10 mg INH Q2H PRN PRN Reason: CRAVING Last Admin: 01/06/18 05:02 Dose: 10 mg Nicotine (Nicotine Patch 21 Mg/24 Hr*) 1 patch TRANSDERM DAILY@0800 [facility] Last Admin: 01/06/18 08:20 Dose: Not Given Ondansetron HCl (Zofran Inj*) 4 mg IV Q4H PRN PRN Reason: NAUSEA/VOMITING Last Admin: 01/06/18 11:48 Dose: 4 mg Pharmacy Profile Note (Nicotine Patch Removal Note*) 1 note FOLLOW UP 0600 [facility] Last Admin: 01/06/18 05:08 Dose: 1 note Polyethylene Glycol/Electrolytes (Miralax*) 17 gm PO DAILY PRN PRN Reason: CONSTIPATION Last Admin: 01/06/18 10:36 Dose: 17 gm Quetiapine Fumarate (Seroquel Tab*) 200 mg PO BEDTIME [facility] Last Admin: 01/05/18 20:55 Dose: 200 mg Senna (Senokot Tab*) 1 tab PO BEDTIME PRN PRN Reason: CONSTIPATION Last Admin: 01/06/18 10:36 Dose: 1 tab Thiamine HCl (Vitamin B-1 Tab*) 100 mg PO DAILY [facility] Last Admin: 01/06/18 08:20 Dose: 100 mg - Discharge Plan Discharge Plan: Drug/Alcohol Rehab
[2018-01-06] MEDS ORDERED: LORazepam INJ* 2 MG/ML 1 ML VIAL IV PUSH PRN (13:59)
--- NOTE | 2018-01-06 14:13 | PN ---
Subjective Date of Service: 01/06/18 Interval History: Patient is feeling better today. Intermittent nausea and significant agitation but much improved. Persistent tremor which appears deliberate. Patient denies F/ C, N/V, abdominal pain, diarrhea, CP, SOB. Patient has persistent low level pain from wound in groin. Family History: Unchanged from Admission Social History: Unchanged from Admission Past Medical History: Unchanged from Admission Objective Active Medications: Acetaminophen (Tylenol Tab*) 650 mg PO Q4H PRN PRN Reason: FEVER/PAIN Last Admin: 01/05/18 15:15 Dose: 650 mg Buprenorphine/Naloxone (Suboxone 8-2 Mg Sl Tab*) 0.5 tab.sl SL 1800 [facility] Last Admin: 01/05/18 17:46 Dose: 0.5 tab.sl Buprenorphine/Naloxone (Suboxone 8-2 Mg Sl Tab*) 1 tab.sl SL QAM [facility] Last Admin: 01/06/18 08:16 Dose: 1 tab.sl Clindamycin HCl (Cleocin Cap*) 300 mg PO Q6HR [facility] Last Admin: 01/06/18 13:53 Dose: 300 mg Device (Nicotine Mouth Piece*) 1 each INH .USE WITH NICOTROL PRN PRN Reason: CRAVING Last Admin: 01/03/18 09:33 Dose: 1 each Docusate Sodium (Colace Cap*) 100 mg PO BID [facility] Folic Acid (Folvite Tab*) 1 mg PO DAILY [facility] Last Admin: 01/06/18 08:21 Dose: 1 mg Gabapentin (Neurontin Cap(*)) 100 mg PO TID [facility] Last Admin: 01/06/18 13:52 Dose: 100 mg Gabapentin (Neurontin Cap(*)) 400 mg PO TID [facility] Last Admin: 01/06/18 13:53 Dose: 400 mg Hydroxyzine HCl (Atarax Tab*) 50 mg PO Q6H PRN PRN Reason: AGITATION Last Admin: 01/06/18 10:36 Dose: 50 mg Ibuprofen (Motrin Tab*) 400 mg PO Q6H PRN PRN Reason: PAIN Last Admin: 01/06/18 01:06 Dose: 400 mg Levetiracetam (Keppra Tab*) 500 mg PO BID [facility] Last Admin: 01/06/18 08:20 Dose: 500 mg Lorazepam (Ativan Inj*) 1 mg IV PUSH Q2H PRN PRN Reason: ANXIETY Multivitamins/Minerals (Theragran/Minerals Tab*) 1 tab PO DAILY [facility] Last Admin: 01/06/18 08:20 Dose: 1 tab Nicotine (Nicotine Inhaler*) 10 mg INH Q2H PRN PRN Reason: CRAVING Last Admin: 01/06/18 13:50 Dose: 10 mg Nicotine (Nicotine Patch 21 Mg/24 Hr*) 1 patch TRANSDERM DAILY@0800 [facility] Last Admin: 01/06/18 08:20 Dose: Not Given Ondansetron HCl (Zofran Inj*) 4 mg IV Q4H PRN PRN Reason: NAUSEA/VOMITING Last Admin: 01/06/18 11:48 Dose: 4 mg Pharmacy Profile Note (Nicotine Patch Removal Note*) 1 note FOLLOW UP 0600 [facility] Last Admin: 01/06/18 05:08 Dose: 1 note Polyethylene Glycol/Electrolytes (Miralax*) 17 gm PO DAILY PRN PRN Reason: CONSTIPATION Last Admin: 01/06/18 10:36 Dose: 17 gm Quetiapine Fumarate (Seroquel Tab*) 200 mg PO BEDTIME [facility] Last Admin: 01/05/18 20:55 Dose: 200 mg Senna (Senokot Tab*) 1 tab PO BEDTIME PRN PRN Reason: CONSTIPATION Last Admin: 01/06/18 10:36 Dose: 1 tab Thiamine HCl (Vitamin B-1 Tab*) 100 mg PO DAILY [facility] Last Admin: 01/06/18 08:20 Dose: 100 mg Vital Signs - 8 hr 01/06/18 01/06/18 01/06/18 06:22 07:11 07:16 Temperature 98.1 F Pulse Rate 106 Respiratory 12 18 16 Rate Blood Pressure 114/86 (mmHg) O2 Sat by Pulse 100 Oximetry 01/06/18 01/06/18 01/06/18 08:00 08:16 08:20 Temperature Pulse Rate Respiratory 16 10 10 Rate Blood Pressure (mmHg) O2 Sat by Pulse 100 Oximetry 01/06/18 01/06/18 01/06/18 08:21 08:30 09:02 Temperature 97.9 F Pulse Rate 107 Respiratory 10 10 18 Rate Blood Pressure 126/83 (mmHg) O2 Sat by Pulse 100 Oximetry 01/06/18 01/06/18 01/06/18 10:39 10:40 10:59 Temperature 98.2 F Pulse Rate 110 Respiratory 16 16 20 Rate Blood Pressure 117/77 (mmHg) O2 Sat by Pulse 100 Oximetry 01/06/18 01/06/18 01/06/18 11:55 13:38 13:44 Temperature 98.2 F Pulse Rate 112 Respiratory 16 10 12 Rate Blood Pressure 107/74 (mmHg) O2 Sat by Pulse 99 Oximetry 01/06/18 01/06/18 01/06/18 13:51 13:52 13:53 Temperature Pulse Rate Respiratory 12 12 12 Rate Blood Pressure (mmHg) O2 Sat by Pulse Oximetry Oxygen Devices in Use Now: None Appearance: Patient is a 27yo female who appears stated age and is sitting in the bed in NAD. Eyes: No Scleral Icterus, PERRLA Ears/Nose/Mouth/Throat: NL Teeth, Lips, Gums, Clear Oropharnyx, Mucous Membranes Moist Neck: NL Appearance and Movements; NL JVP, Trachea Midline Respiratory: Symmetrical Chest Expansion and Respiratory Effort, Clear to Auscultation Cardiovascular: NL Sounds; No Murmurs; No JVD, RRR, No Edema Abdominal: NL Sounds; No Tenderness; No Distention, No Hepatosplenomegaly Lymphatic: No Cervical Adenopathy Extremities: No Edema, No Clubbing, Cyanosis Skin: No Nodules or Sclerosis, - - Groin wound similar in appearance to previous exam. Neurological: Alert and Oriented x 3, NL Sensation, NL Muscle Strength and Tone , - - CN II-XII intact Result Diagrams: 01/06/18 04:43 01/06/18 06:31 Microbiology and Other Data: Microbiology 01/02/18 13:55 Aerobic Blood Culture - Preliminary Blood Venous No Growth Day 2 Anaerobic Blood Culture - Final Not Reportable 01/02/18 22:30 Aerobic Blood Culture - Preliminary Blood Venous No Growth Day 1 Anaerobic Blood Culture - Preliminary No Growth Day 1 01/02/18 22:19 Aerobic Blood Culture - Preliminary Blood Venous No Growth Day 1 Anaerobic Blood Culture - Preliminary No Growth Day 1 Assess/Plan/Problems-Billing Assessment: Ms. Perez 27 y.o female with a pmhx significant for ETOH and poly substance abuse who presented to the ER for detox. Patient with suicidial Ideation in the ER. Patient was scoring on WAM so she was referred to the hospitalist team for admission. Patient continues to score on WAM and is interested to discharge to alcohol rehab. - Patient Problems (1) Polysubstance abuse Current Visit: Yes Status: Acute Code(s): F19.10 - OTHER PSYCHOACTIVE SUBSTANCE ABUSE, UNCOMPLICATED SNOMED Code(s): 121577062 Comment: - Patient has been documented numerous times doing maneuvers to artifically increase WAM score. - Discontinue WAM assessment and start Ativan PRN for anxiety Q2H - Will need inpatient substance abuse rehab - Patient requests testing for HIV and Hepatitis C due to previous needle sharing which are pending. - Positive Urine for Cocaine and Marijuana at admission. - Appreciate psychiatry consult. - Difficulty finding facility. (2) Alcohol abuse Current Visit: Yes Status: Acute Code(s): F10.10 - ALCOHOL ABUSE, UNCOMPLICATED SNOMED Code(s): 48750174 Comment: - Change WAM protocol to PRN ativan - Patient states eagerness to go to inpatient rehab and confidence that she would relapse without support. - Patient is currently homeless and a very high risk of relapse if discharged without support. - SW consult to assist with getting into inpatient rehab. (3) DVT prophylaxis Current Visit: Yes Status: Acute Code(s): ASN6432 - SNOMED Code(s): 018450697 Comment: - Ambulation - Low Risk (4) Cellulitis Current Visit: Yes Status: Acute Code(s): L03.90 - CELLULITIS, UNSPECIFIED SNOMED Code(s): 673780195 Comment: - Mild, purulent, associated with folliculitis per patient. - Stop Clindamycin today. - Appreciate wound consult. Antibiotic ointment and gauze. US for abscess. (5) Full code status Current Visit: Yes Status: Acute Code(s): Z78.9 - OTHER SPECIFIED HEALTH STATUS SNOMED Code(s): 391111289 Status and Disposition: inpatient. Pending rehab. Patient is a very high risk for adverse outcome if discharged without support.
--- NOTE | 2018-01-06 15:32 | RAD ---
Indication: Concern for abscess. Real-time sonography of the soft tissue just superficial to the pubis demonstrated edema with no evidence of drainable fluid collections. IMPRESSION: The area swelling appears to demonstrate edema without definite drainable fluid collection.
[2018-01-06] MEDS: LORazepam INJ* 2 MG/ML 1 ML VIAL IV PUSH PRN ×4 (15:37→23:35)
[2018-01-06] MEDS: Docusate CAP* 100 MG PO SCH (20:18)
[2018-01-06] MEDS: QUEtiapine TAB* 100 MG PO SCH (23:35)
[2018-01-07] MEDS: Mouth Piece, Nicotine* 1 EACH CARTRIDGE INH PRN (02:46)
[2018-01-07] MEDS: Nicotine Inhaler* 10 MG AMP INH PRN ×2 (02:47→17:37)
[2018-01-07] MEDS: LORazepam INJ* 2 MG/ML 1 ML VIAL IV PUSH PRN ×4 (03:09→12:08)
[2018-01-07] MEDS: Clindamycin CAP* 150 MG PO SCH (06:04)
[2018-01-07] MEDS: Nicotine Patch Removal NOTE FOLLOW UP SCH (06:08)
[2018-01-07] MEDS: Nicotine PATCH 21 MG/24 HR* PATCH TRANSDERM SCH (07:46)
[2018-01-07] MEDS: Gabapentin CAP(*) 400 MG PO SCH (07:49)
[2018-01-07] MEDS: levETIRAcetam TAB* 500 MG PO SCH (07:49)
[2018-01-07] MEDS: Gabapentin CAP(*) 100 MG PO SCH (07:50)
[2018-01-07] MEDS: Thiamine TAB* 100 MG TAB PO SCH (07:50)
[2018-01-07] MEDS: Folic Acid TAB* 1 MG PO SCH (07:50)
[2018-01-07] MEDS: Docusate CAP* 100 MG PO SCH (07:50)
[2018-01-07] MEDS: Multivitamins/Minerals TAB PO SCH (07:50)
[2018-01-07] MEDS: Buprenorphine/Naloxone 8-2 MG SL TAB* 1 TAB SL SCH ×2 (07:50→17:36)
[2018-01-07] MEDS: hydrOXYzine HCL TAB* 50 MG PO PRN (08:59)
[2018-01-07] MEDS: Ibuprofen TAB* 400 MG PO PRN (08:59)
[2018-01-07] MEDS: Gabapentin CAP(*) 300 MG PO SCH ×2 (10:12→15:22)
[2018-01-07] MEDS: ALPRAZolam TAB* 0.5 MG PO PRN ×2 (10:24→15:52)
[2018-01-07] MEDS: busPIRone TAB* 5 MG PO PRN ×3 (10:24→20:09)
--- NOTE | 2018-01-07 14:25 | PN ---
Subjective Date of Service: 01/07/18 Interval History: Patient states her general state of mind has improved. Patient denies tremors, N /V, CP, SOB, abdominal pain, dysuria, dizziness. Patient complains of significant back pain. Patient states her ibuprofen and tylenol hasn't been helping. Patient states she has been having intermittent panic attacks. Patient states that ativan is somewhat helpful but that she has better response to xanax. Patient states she has tried buspar before with limited efficacy. Patient is forward thinking and interested in getting her life back together. Family History: Unchanged from Admission Social History: Unchanged from Admission Past Medical History: Unchanged from Admission Objective Active Medications: Acetaminophen (Tylenol Tab*) 650 mg PO Q4H PRN PRN Reason: FEVER/PAIN Last Admin: 01/05/18 15:15 Dose: 650 mg Alprazolam (Xanax Tab*) 2 mg PO TID PRN PRN Reason: ANXIETY - SEVERE Last Admin: 01/07/18 10:24 Dose: 2 mg Buprenorphine/Naloxone (Suboxone 8-2 Mg Sl Tab*) 1 tab.sl SL QAM [facility] Last Admin: 01/07/18 07:50 Dose: 1 tab.sl Buprenorphine/Naloxone (Suboxone 8-2 Mg Sl Tab*) 1 tab.sl SL 1800 [facility] Buspirone HCl (Buspar Tab*) 5 mg PO TID PRN PRN Reason: ANXIETY Last Admin: 01/07/18 10:24 Dose: 5 mg Device (Nicotine Mouth Piece*) 1 each INH .USE WITH NICOTROL PRN PRN Reason: CRAVING Last Admin: 01/07/18 02:46 Dose: 1 each Docusate Sodium (Colace Cap*) 100 mg PO BID [facility] Last Admin: 01/07/18 07:50 Dose: 100 mg Folic Acid (Folvite Tab*) 1 mg PO DAILY [facility] Last Admin: 01/07/18 07:50 Dose: 1 mg Gabapentin (Neurontin Cap(*)) 600 mg PO TID [facility] Last Admin: 01/07/18 10:12 Dose: Not Given Hydroxyzine HCl (Atarax Tab*) 50 mg PO Q6H PRN PRN Reason: AGITATION Last Admin: 01/07/18 08:59 Dose: 50 mg Ibuprofen (Motrin Tab*) 400 mg PO Q6H PRN PRN Reason: PAIN Last Admin: 01/07/18 08:59 Dose: 400 mg Levetiracetam (Keppra Tab*) 500 mg PO BID [facility] Last Admin: 01/07/18 07:49 Dose: 500 mg Multivitamins/Minerals (Theragran/Minerals Tab*) 1 tab PO DAILY [facility] Last Admin: 01/07/18 07:50 Dose: 1 tab Nicotine (Nicotine Inhaler*) 10 mg INH Q2H PRN PRN Reason: CRAVING Last Admin: 01/07/18 02:47 Dose: 10 mg Nicotine (Nicotine Patch 21 Mg/24 Hr*) 1 patch TRANSDERM DAILY@0800 [facility] Last Admin: 01/07/18 07:46 Dose: 1 patch Ondansetron HCl (Zofran Inj*) 4 mg IV Q4H PRN PRN Reason: NAUSEA/VOMITING Last Admin: 01/06/18 11:48 Dose: 4 mg Pharmacy Profile Note (Nicotine Patch Removal Note*) 1 note FOLLOW UP 0600 [facility] Last Admin: 01/07/18 06:08 Dose: 1 note Polyethylene Glycol/Electrolytes (Miralax*) 17 gm PO DAILY PRN PRN Reason: CONSTIPATION Last Admin: 01/06/18 10:36 Dose: 17 gm Quetiapine Fumarate (Seroquel Tab*) 200 mg PO BEDTIME [facility] Last Admin: 01/06/18 23:35 Dose: 200 mg Senna (Senokot Tab*) 1 tab PO BEDTIME PRN PRN Reason: CONSTIPATION Last Admin: 01/06/18 10:36 Dose: 1 tab Thiamine HCl (Vitamin B-1 Tab*) 100 mg PO DAILY [facility] Last Admin: 01/07/18 07:50 Dose: 100 mg Vital Signs - 8 hr 01/07/18 01/07/18 01/07/18 07:49 07:50 07:53 Respiratory 12 12 12 Rate 01/07/18 01/07/18 01/07/18 08:59 10:23 10:24 Respiratory 12 12 12 Rate 01/07/18 01/07/18 01/07/18 10:34 10:35 12:08 Respiratory 12 12 12 Rate 01/07/18 13:59 Respiratory 12 Rate Oxygen Devices in Use Now: None Appearance: Patient is a 27yo female who appears stated age and is sitting in the bed in [facility]. Eyes: No Scleral Icterus, PERRLA Ears/Nose/Mouth/Throat: NL Teeth, Lips, Gums, Clear Oropharnyx, Mucous Membranes Moist Neck: NL Appearance and Movements; NL JVP, Trachea Midline Respiratory: Symmetrical Chest Expansion and Respiratory Effort, Clear to Auscultation Cardiovascular: NL Sounds; No Murmurs; No JVD, RRR, No Edema Abdominal: NL Sounds; No Tenderness; No Distention, No Hepatosplenomegaly Lymphatic: No Cervical Adenopathy Extremities: No Edema, No Clubbing, Cyanosis Skin: No Rash or Ulcers, No Nodules or Sclerosis Neurological: Alert and Oriented x 3, NL Sensation, NL Muscle Strength and Tone , - - CN II-XII intact. Result Diagrams: 01/06/18 04:43 01/06/18 06:31 Microbiology and Other Data: Microbiology 01/02/18 13:55 Aerobic Blood Culture - Preliminary Blood Venous No Growth Day 2 Anaerobic Blood Culture - Final Not Reportable 01/02/18 22:30 Aerobic Blood Culture - Preliminary Blood Venous No Growth Day 1 Anaerobic Blood Culture - Preliminary No Growth Day 1 01/02/18 22:19 Aerobic Blood Culture - Preliminary Blood Venous No Growth Day 1 Anaerobic Blood Culture - Preliminary No Growth Day 1 Assess/Plan/Problems-Billing Assessment: Ms. Perez 27 y.o female with a pmhx significant for ETOH and poly substance abuse who presented to the ER for detox. Patient with suicidial Ideation in the ER. Patient was scoring on WAM so she was referred to the hospitalist team for admission. Patient continues to score on WAM and is interested to discharge to alcohol rehab. - Patient Problems (1) Polysubstance abuse Current Visit: Yes Status: Acute Code(s): F19.10 - OTHER PSYCHOACTIVE SUBSTANCE ABUSE, UNCOMPLICATED SNOMED Code(s): 539961195 Comment: - Patient is not showing signs of alcohol withdrawal - Start Xanax TID for panic attacks and buspar PRN for anxiety. - Will need inpatient substance abuse rehab - Patient requests testing for HIV and Hepatitis C due to previous needle sharing which are pending. - Positive Urine for Cocaine and Marijuana at admission. - Appreciate psychiatry consult. - Difficulty finding facility. - High risk for relapse if discharged without proper follow up due to poor support system. (2) Alcohol abuse Current Visit: Yes Status: Acute Code(s): F10.10 - ALCOHOL ABUSE, UNCOMPLICATED SNOMED Code(s): 51412190 Comment: - Change [facility] protocol to PRN Alfdelfina - Patient states eagerness to go to inpatient rehab and confidence that she would relapse without support. - Patient is currently homeless and a very high risk of relapse if discharged without support. - consult to assist with getting into inpatient rehab. (3) DVT prophylaxis Current Visit: Yes Status: Acute Code(s): ALB1097 - SNOMED Code(s): 987478603 Comment: - Ambulation - Low Risk (4) Cellulitis Current Visit: Yes Status: Acute Code(s): L03.90 - CELLULITIS, UNSPECIFIED SNOMED Code(s): 970619374 Comment: - Mild, purulent, associated with folliculitis per patient. - Stop Clindamycin today. - Appreciate wound consult. Antibiotic ointment and gauze. US for abscess. (5) Full code status Current Visit: Yes Status: Acute Code(s): Z78.9 - OTHER SPECIFIED HEALTH STATUS SNOMED Code(s): 378500563 Status and Disposition: inpatient. Pending rehab. Patient is a very high risk for adverse outcome if discharged without support.
[2018-01-07] MEDS: Cyclobenzaprine TAB* 10 MG PO PRN (17:35)
[2018-01-07] MEDS ORDERED: LORazepam INJ* 2 MG/ML 1 ML VIAL IV PUSH ONE (18:04)
[2018-01-08] MEDS: ALPRAZolam TAB* 0.5 MG PO PRN ×2 (01:38→08:18)
[2018-01-08] MEDS: QUEtiapine TAB* 100 MG PO SCH ×2 (01:40→22:12)
[2018-01-08] MEDS: Gabapentin CAP(*) 300 MG PO SCH ×4 (01:42→21:23)
[2018-01-08] MEDS: levETIRAcetam TAB* 500 MG PO SCH ×3 (01:45→21:24)
[2018-01-08] MEDS: Docusate CAP* 100 MG PO SCH ×3 (01:45→21:23)
[2018-01-08] MEDS: Nicotine Inhaler* 10 MG AMP INH PRN ×4 (01:53→22:10)
[2018-01-08 06:38] LABS: ABS Basophils 0.1 10^3/ul (0-0.2); ABS Eosinophils 0.3 10^3/ul (0-0.6); ABS Lymphocytes 1.7 10^3/ul (1.0-4.8); ABS Monocytes 0.7 10^3/ul (0-0.8); ABS Neutrophils 3.4 10^3/ul (1.5-7.7); ABS Nucleated RBC 0 10^3/ul; Eosinophil % 4.4 % (0-6); Hematocrit 36 % (35-47); Hemoglobin 11.9 g/dl (12.0-16.0); Lymphocyte % 27.4 % (25-47); Mean Corpuscular HGB Conc 34 g/dl (31-36); Mean Corpuscular Hemoglobin 30 pg (27-31); Mean Corpuscular Volume 90 fL (80-97); Mean Platelet Volume 8.1 um3 (7.4-10.4); Nucleated Red Blood Cells % 0.1; Platelet Count 311 10^3/ul (150-450); Red Blood Count 3.97 10^6/ul (4.00-5.40); Red Cell Distribution Width 16 % (10.5-15); White Blood Count 6.2 10^3/ul (3.5-10.8)
[2018-01-08 06:57] LABS: EGFR Non-African American 109.3 (>60)
[2018-01-08] MEDS: Ondansetron INJ* 2 MG/ML VIAL IV PRN (08:11)
[2018-01-08] MEDS: Nicotine PATCH 21 MG/24 HR* PATCH TRANSDERM SCH (08:14)
[2018-01-08] MEDS: busPIRone TAB* 5 MG PO PRN ×3 (08:18→21:23)
[2018-01-08] MEDS: hydrOXYzine HCL TAB* 50 MG PO PRN ×2 (08:20→14:26)
[2018-01-08] MEDS: Thiamine TAB* 100 MG TAB PO SCH (08:20)
[2018-01-08] MEDS: Folic Acid TAB* 1 MG PO SCH (08:20)
[2018-01-08] MEDS: Multivitamins/Minerals TAB PO SCH (08:21)
[2018-01-08] MEDS: Cyclobenzaprine TAB* 10 MG PO PRN ×2 (08:21→17:47)
[2018-01-08] MEDS: Buprenorphine/Naloxone 8-2 MG SL TAB* 1 TAB SL SCH ×2 (08:22→17:36)
[2018-01-08] MEDS: Nicotine Patch Removal NOTE FOLLOW UP SCH (08:26)
[2018-01-08] MEDS: LORazepam INJ* 2 MG/ML 1 ML VIAL IV PUSH PRN ×2 (10:27→14:39)
[2018-01-08] MEDS ORDERED: LORazepam INJ* 2 MG/ML 1 ML VIAL IV PUSH ONE (15:01)
[2018-01-08] MEDS ORDERED: LORazepam INJ* 2 MG/ML 1 ML VIAL IV PUSH PRN ×2 (15:01→21:33)
--- NOTE | 2018-01-08 15:17 | PN ---
Subjective Date of Service: 01/08/18 Interval History: Patient is acting increasingly weepy and acting out more with the tapering of her benzodiazepines. Patient complains of persistent pain in back radiating in left leg. Patient unable to be redirected to complete ROS. Family History: Unchanged from Admission Social History: Unchanged from Admission Past Medical History: Unchanged from Admission Objective Active Medications: Acetaminophen (Tylenol Tab*) 650 mg PO Q4H PRN PRN Reason: FEVER/PAIN Last Admin: 01/05/18 15:15 Dose: 650 mg Buprenorphine/Naloxone (Suboxone 8-2 Mg Sl Tab*) 1 tab.sl SL QAM [facility] Last Admin: 01/08/18 08:22 Dose: 1 tab.sl Buprenorphine/Naloxone (Suboxone 8-2 Mg Sl Tab*) 1 tab.sl SL 1800 [facility] Last Admin: 01/07/18 17:36 Dose: 1 tab.sl Buspirone HCl (Buspar Tab*) 5 mg PO TID PRN PRN Reason: ANXIETY Last Admin: 01/08/18 08:18 Dose: 5 mg Cyclobenzaprine HCl (Flexeril Tab*) 10 mg PO TID PRN PRN Reason: SPASMS Last Admin: 01/08/18 08:21 Dose: 10 mg Device (Nicotine Mouth Piece*) 1 each INH .USE WITH NICOTROL PRN PRN Reason: CRAVING Last Admin: 01/07/18 02:46 Dose: 1 each Docusate Sodium (Colace Cap*) 100 mg PO BID [facility] Last Admin: 01/08/18 08:21 Dose: 100 mg Folic Acid (Folvite Tab*) 1 mg PO DAILY [facility] Last Admin: 01/08/18 08:20 Dose: 1 mg Gabapentin (Neurontin Cap(*)) 600 mg PO TID [facility] Last Admin: 01/08/18 14:26 Dose: 600 mg Hydroxyzine HCl (Atarax Tab*) 50 mg PO Q6H PRN PRN Reason: AGITATION Last Admin: 01/08/18 14:26 Dose: 50 mg Ibuprofen (Motrin Tab*) 400 mg PO Q6H PRN PRN Reason: PAIN Last Admin: 01/07/18 08:59 Dose: 400 mg Levetiracetam (Keppra Tab*) 500 mg PO BID [facility] Last Admin: 01/08/18 08:15 Dose: 500 mg Lorazepam (Ativan Inj*) 1 mg IV PUSH ONCE ONE Stop: 01/08/18 15:02 Lorazepam (Ativan Inj*) 2 mg IV PUSH TID PRN PRN Reason: ANXIETY Multivitamins/Minerals (Theragran/Minerals Tab*) 1 tab PO DAILY [facility] Last Admin: 01/08/18 08:21 Dose: 1 tab Nicotine (Nicotine Inhaler*) 10 mg INH Q2H PRN PRN Reason: CRAVING Last Admin: 01/08/18 14:44 Dose: 10 mg Nicotine (Nicotine Patch 21 Mg/24 Hr*) 1 patch TRANSDERM DAILY@0800 [facility] Last Admin: 01/08/18 08:14 Dose: 1 patch Ondansetron HCl (Zofran Inj*) 4 mg IV Q4H PRN PRN Reason: NAUSEA/VOMITING Last Admin: 01/08/18 08:11 Dose: 4 mg Pharmacy Profile Note (Nicotine Patch Removal Note*) 1 note FOLLOW UP 0600 [facility] Last Admin: 01/08/18 08:26 Dose: 1 note Polyethylene Glycol/Electrolytes (Miralax*) 17 gm PO DAILY PRN PRN Reason: CONSTIPATION Last Admin: 01/06/18 10:36 Dose: 17 gm Quetiapine Fumarate (Seroquel Tab*) 200 mg PO BEDTIME [facility] Last Admin: 01/08/18 01:40 Dose: 200 mg Senna (Senokot Tab*) 1 tab PO BEDTIME PRN PRN Reason: CONSTIPATION Last Admin: 01/06/18 10:36 Dose: 1 tab Thiamine HCl (Vitamin B-1 Tab*) 100 mg PO DAILY [facility] Last Admin: 01/08/18 08:20 Dose: 100 mg Vital Signs - 8 hr 01/08/18 01/08/18 01/08/18 07:15 08:17 08:18 Respiratory 12 12 Rate Blood Pressure 113/58 (mmHg) 01/08/18 01/08/18 01/08/18 08:21 08:22 10:26 Respiratory 12 12 12 Rate Blood Pressure (mmHg) 01/08/18 01/08/18 01/08/18 10:27 10:31 12:51 Respiratory 10 10 10 Rate Blood Pressure (mmHg) 01/08/18 01/08/18 01/08/18 12:52 14:26 14:39 Respiratory 10 16 12 Rate Blood Pressure (mmHg) Oxygen Devices in Use Now: None Appearance: Patient is a 27yo female who appears stated age and is sitting in the bed crying. Eyes: No Scleral Icterus, PERRLA Ears/Nose/Mouth/Throat: NL Teeth, Lips, Gums, Clear Oropharnyx, Mucous Membranes Moist Neck: NL Appearance and Movements; NL JVP, Trachea Midline Respiratory: Symmetrical Chest Expansion and Respiratory Effort, Clear to Auscultation Cardiovascular: NL Sounds; No Murmurs; No JVD, RRR, No Edema Abdominal: NL Sounds; No Tenderness; No Distention, No Hepatosplenomegaly Lymphatic: No Cervical Adenopathy Extremities: No Edema, No Clubbing, Cyanosis Skin: No Rash or Ulcers, No Nodules or Sclerosis Neurological: Alert and Oriented x 3, NL Sensation, NL Muscle Strength and Tone , - - CN II-XII intact Result Diagrams: 01/08/18 06:14 01/08/18 06:14 Microbiology and Other Data: Microbiology 01/02/18 13:55 Aerobic Blood Culture - Preliminary Blood Venous No Growth Day 2 Anaerobic Blood Culture - Final Not Reportable 01/02/18 22:30 Aerobic Blood Culture - Preliminary Blood Venous No Growth Day 1 Anaerobic Blood Culture - Preliminary No Growth Day 1 01/02/18 22:19 Aerobic Blood Culture - Preliminary Blood Venous No Growth Day 1 Anaerobic Blood Culture - Preliminary No Growth Day 1 Assess/Plan/Problems-Billing Assessment: Ms. Perez 27 y.o female with a pmhx significant for ETOH and poly substance abuse who presented to the ER for detox. Patient with suicidial Ideation in the ER. Patient was scoring on WAM so she was referred to the hospitalist team for admission. Patient continues to score on WAM and is interested to discharge to alcohol rehab. - Patient Problems (1) Polysubstance abuse Current Visit: Yes Status: Acute Code(s): F19.10 - OTHER PSYCHOACTIVE SUBSTANCE ABUSE, UNCOMPLICATED SNOMED Code(s): 758209420 Comment: - Patient is not showing signs of alcohol withdrawal - Change Xanax to ativan PRN for panic attacks and buspar PRN for anxiety. - Daily reductions in equivalent dosing of benzodiazepines. - Will need inpatient substance abuse rehab - Patient requests testing for HIV and Hepatitis C due to previous needle sharing which are pending. - Positive Urine for Cocaine and Marijuana at admission. - Appreciate psychiatry consult. - Difficulty finding facility. - High risk for relapse if discharged without proper follow up due to poor support system. (2) Anxiety Current Visit: Yes Status: Acute Code(s): F41.9 - ANXIETY DISORDER, UNSPECIFIED SNOMED Code(s): 98582031 Comment: - Duloxetine, Buspar, Hydroxazine - Taper benzodiazepines - Appreciate psych consult - Increased behaviors. Likely rebound anxiety from benzodiazepine tapering (3) Alcohol abuse Current Visit: Yes Status: Acute Code(s): F10.10 - ALCOHOL ABUSE, UNCOMPLICATED SNOMED Code(s): 15410118 Comment: - PRN ativan with taper - Patient states eagerness to go to inpatient rehab and confidence that she would relapse without support. - Patient is currently homeless and a very high risk of relapse if discharged without support. - SW consult to assist with getting into inpatient rehab. (4) Cellulitis Current Visit: Yes Status: Acute Code(s): L03.90 - CELLULITIS, UNSPECIFIED SNOMED Code(s): 468518827 Comment: - Mild, purulent, associated with folliculitis per patient. - Stop Clindamycin today. - Appreciate wound consult. Antibiotic ointment and gauze. US for abscess. (5) DVT prophylaxis Current Visit: Yes Status: Acute Code(s): TUD5499 - SNOMED Code(s): 965744159 Comment: - Ambulation - Low Risk (6) Full code status Current Visit: Yes Status: Acute Code(s): Z78.9 - OTHER SPECIFIED HEALTH STATUS SNOMED Code(s): 673740308 Status and Disposition: inpatient. Pending rehab. Patient is a very high risk for adverse outcome if discharged without support.
[2018-01-08] MEDS: Acetaminophen TAB* 325 MG PO PRN (17:33)
[2018-01-08] MEDS: Ibuprofen TAB* 400 MG PO PRN (17:34)
[2018-01-08] MEDS: Polyethylene Glycol 3350* 17 GM PACKET PO PRN (17:47)
[2018-01-08] MEDS: Senna TAB PO PRN (17:47)
[2018-01-08] MEDS: LORazepam TAB(*) 1 MG PO PRN (20:00)
[2018-01-09] MEDS: LORazepam TAB(*) 1 MG PO PRN ×2 (02:08→08:55)
[2018-01-09] MEDS: Nicotine Patch Removal NOTE FOLLOW UP SCH (06:11)
[2018-01-09] MEDS: Nicotine PATCH 21 MG/24 HR* PATCH TRANSDERM SCH (08:52)
[2018-01-09] MEDS: Nicotine Inhaler* 10 MG AMP INH PRN ×2 (08:52→12:02)
[2018-01-09] MEDS: Multivitamins/Minerals TAB PO SCH (08:52)
[2018-01-09] MEDS: hydrOXYzine HCL TAB* 50 MG PO PRN (08:52)
[2018-01-09] MEDS: Folic Acid TAB* 1 MG PO SCH (08:52)
[2018-01-09] MEDS: Buprenorphine/Naloxone 8-2 MG SL TAB* 1 TAB SL SCH (08:53)
[2018-01-09] MEDS: levETIRAcetam TAB* 500 MG PO SCH (08:53)
[2018-01-09] MEDS: Cyclobenzaprine TAB* 10 MG PO PRN (08:53)
[2018-01-09] MEDS: Gabapentin CAP(*) 300 MG PO SCH (08:54)
[2018-01-09] MEDS: Thiamine TAB* 100 MG TAB PO SCH (08:55)
[2018-01-09] MEDS: Docusate CAP* 100 MG PO SCH (08:55)
[2018-01-09] MEDS ORDERED: Diazepam (ANTICONVULSANT)(*) 10 MG RECTAL.GEL PR PRN (09:24)
--- NOTE | 2018-01-09 12:16 | RAD ---
Indication: Low back pain post fall 8 days ago. Radicular symptoms. Comparison: January 02, 2018 CT. Technique: [employer] [place] 1.5 Chrissie [id number] with GEM suite. Noncontrast MRI lumbar sacral spine. Report: Incidental 0.8 cm cortical cyst upper pole LEFT kidney without concern. Unremarkable conus medullaris and cauda equina. Bone marrow signal is normal throughout. Negative for fracture or spondylolysis at any level. Normal vertebral alignment accounting for exam positioning without spondylolisthesis or subluxation at any level. T12-L1: Unremarkable disc level for age without acquired spinal stenosis. L1-L2: Unremarkable disc level for age without acquired spinal stenosis. L2-L3: Unremarkable disc level for age without acquired spinal stenosis. L3-L4: Unremarkable disc level for age without acquired spinal stenosis. L4-L5: Unremarkable disc level for age without acquired spinal stenosis. L5-S1: Unremarkable disc level for age without acquired spinal stenosis.. IMPRESSION: #. No traumatic injury or degenerative process of the lumbar sacral spine evident. Negative exam.
[2018-01-09] MEDS: busPIRone TAB* 5 MG PO PRN (12:55)
[2018-01-09 13:08] VITALS: BP 111/69
--- NOTE | 2018-01-10 04:37 | DS ---
DISCHARGE SUMMARY: DATE OF ADMISSION: 01/03/18 DATE OF DISCHARGE: 01/09/18 PRIMARY CARE PROVIDER: None. ATTENDING PHYSICIAN: Dr. Abby Felix * (dictated by Sunshine Leyva, JESSICA) PRIMARY DIAGNOSES: 1. Polysubstance abuse. 2. Anxiety. 3. Alcohol abuse. SECONDARY DIAGNOSIS: 1. History of alcohol abuse. CONSULTATIONS WHILE IN THE HOSPITAL: Dr. Gonzalez saw the patient multiple times during this hospitalization, the first time on 01/03/18, at which time he recommended continuing her gabapentin, Seroquel, Suboxone, and Keppra. He determined that she was psychiatrically cleared and not a risk to herself. He saw her again on 01/04/18 and determined that there was no rationale for inpatient behavioral health evaluation. He saw her a third time on 01/06/18 at which time he signed off. STUDIES WHILE IN THE HOSPITAL: 1. Brain CT on 01/02/18 read as no evidence of intracranial mass or hemorrhage. 2. Chest, abdomen, pelvis CT on 01/03/18 read as no acute findings. 3. Abdominal ultrasound on 01/06/18 read as the area of swelling appears to demonstrate edema without definite drainable fluid collection. 4. Lumbar spine MRI on 01/09/18 read as no traumatic injury or degenerative process of the lumbosacral spine. Negative exam. DISCHARGE MEDICATIONS: New home medications: None. Continued home medications: 1. Ibuprofen 400 mg PO every 6 hours p.r.n. 2. Acetaminophen 650 PO mg q.6 hours as p.r.n. 3. Suboxone 8-2 mg 1 film sublingual every morning. 4. Hydroxyzine 50 mg PO q.6 hours p.r.n. 5. Keppra 500 mg PO b.i.d. 6. Folic acid 1 tab PO daily. 7. Seroquel 1 tab PO daily at bedtime. 8. Gabapentin 500 mg PO t.i.d. 9. Suboxone 8-2 mg 0.5 film sublingual nightly. Changed home medications: None. Discontinued home medications: None. HISTORY OF PRESENT ILLNESS AND HOSPITAL COURSE: Ms. Perez is a 27-year-old female with a past medical history of alcohol abuse, who presented to the emergency room on 01/03/18 requesting detox. Please see the history and physical by Dr. Luna Ghosh for a complete summary of the events leading up to this hospitalization; but in short, the patient reported that she fell out of a 2-story window while drinking. She admitted to consuming alcohol and snorting Xanax and came to the emergency room because she had back pain related to the fall. She was started on the WAM protocol. She was noted to have folliculitis of the abdomen on 01/03/18 and was started on clindamycin at that time. On 01/03/18, it was noted that the patient was noted to be attempting to artificially increase her WAM score to get more Ativan. There was also a pseudoseizure event. She continued to request benzos; although by 01/07/18, it does not appear that she was actively withdrawing any longer and the WAM protocol was stopped. The patient continued to act weepy could not communicate with staff in an effective and mature manner. The plan initially was that she would be discharged to an inpatient rehab facility from this hospital, though as of the day of discharge, the patient could not be discharged to a rehab facility as she was still adamant that she needed benzos to manage her anxiety. As of today, the patient understands that she cannot be accepted to rehab facility while she is still taking benzos and she is agreeable to be discharged home. Ms. Perez is stable for discharge home today. Vital signs are as follows: Temp 97.0, heart rate 77, respiratory rate 18, oxygen saturation 100% on room air, blood pressure 111/69. DISCHARGE PLAN: Ms. Perez will be discharged to home. As she is currently homeless, she will be provided with transportation to the department of social media director. Activity will be as tolerated. She can have a regular diet. I have not made any changes to her medication. I attempted to prescribe BuSpar, but reportedly the patient is not able to fill any prescription in this county and therefore, would not be able to obtain a medication. She should establish a PCP and follow up regarding the need for anxiety medication. The patient should return to the ER or nearest hospital for any worsening of symptoms, shortness of breath, lightheadedness, dizziness, chest discomfort, high fevers, chills, night sweats, loss of consciousness, or any other worrisome signs or symptoms. She is understanding and agreeable to the discharge plan. This is a summarized report of a complex medical history and hospital stay. For further details, please see the entire medical record. TIME SPENT: Approximately 60 minutes were spent on this discharge; greater than half of that time spent [id number] with the patient discussing discharge plans and instructions. SUNSHINE LEYVA NP [id number]/CPS #: [id number] MIKE
== END 2018-01-09 13:33 | disposition home or self-care (01) | DRG 773 ==
LOC: ED 13:11 → MED 01-03 00:12 → OBSVTOIN 01-03 10:00
PROVIDERS: ADMIT Pediatrics; ATTEND Internal Medicine
DX: F10.239 Alcohol dependence with withdrawal, unspecified (principal); R45.851 Suicidal ideations; L03.311 Cellulitis of abdominal wall; F11.10 Opioid abuse, uncomplicated; F10.24 Alcohol dependence with alcohol-induced mood disorder; F10.229 Alcohol dependence with intoxication, unspecified; F12.10 Cannabis abuse, uncomplicated; Y90.8 Blood alcohol level of 240 mg/100 ml or more; F14.10 Cocaine abuse, uncomplicated; F41.9 Anxiety disorder, unspecified; L73.8 Other specified follicular disorders; M54.9 Dorsalgia, unspecified; W13.4XXA Fall from, out of or through window, initial encounter; Y92.9 Unspecified place or not applicable; Z59.0 Homelessness; Z79.1 Long term (current) use of non-steroidal anti-inflammatories (NSAID); Z79.899 Other long term (current) drug therapy; Z81.3 Family history of other psychoactive substance abuse and dependence
CPT/HCPCS: 36415; 70450; 71250; 72125; 72131; 72148; 74176; 76705; 80048; 80053; 80177; 80307; 80320; 80329; 81003; 82550; 83605; 83735; 84443; 84484; 84702; 85025; 85610; 85652; 85730; 86140; 86703; 86803; 87040; 93005; 99285; 99406; A9270-GY; G0480; J1200; J2060; J2405; J3411

== ENCOUNTER 2022-03-31 14:09 | Inpatient (IN) ==
[2022-03-31] MEDS ORDERED: LORazepam 2 mg VIAL 1 ml IM ONE (15:05)
[2022-03-31] MEDS ORDERED: Lorazepam PYXIS KEY PRN (15:05)
[2022-03-31] MEDS ORDERED: Haloperidol 5 mg/ml SDV IV/IM 5 MG/ML AMP IM ONE (15:09)
[2022-03-31] MEDS ORDERED: Haloperidol 5 mg/ml SDV IV/IM 5 MG/ML AMP ONE (15:10)
[2022-03-31 16:09] LABS: ABS Basophils 0.1 10^3/ul (0-0.2); ABS Eosinophils 0.1 10^3/ul (0-0.6); ABS Monocytes 0.6 10^3/ul (0-0.8); ABS Neutrophils 5.8 10^3/ul (1.5-7.7); Eosinophil % 0.7 %; Hematocrit 43 % (35-47); Hemoglobin 14.8 g/dL (12.0-16.0); Mean Corpuscular HGB Conc 34 g/dL (31-36); Mean Corpuscular Hemoglobin 32 pg (27-31); Mean Corpuscular Volume 94 fL (80-97); Mean Platelet Volume 8.3 fL (7.4-10.4); Platelet Count 206 10^3/uL (150-450); Red Blood Count 4.64 10^6 /uL (3.70-4.87); Red Cell Distribution Width 15 % (10-15); White Blood Count 9.5 10^3/uL (3.5-10.8)
[2022-03-31 16:11] LABS: HCG Pregnancy < 0.60 mIU/mL
[2022-03-31 16:16] LABS: TSH Ultra Thyroid Stim Horm 0.98 mcIU/mL (0.34-5.60)
[2022-03-31 16:18] LABS: ALT 26 U/L (7-52); AST 23 U/L (13-39); Acetaminophen < 15 mcg/mL; Albumin 4.5 g/dL (3.2-5.2); Albumin/Globulin Ratio 1.5 (1-3); Alcohol, S < 13 mg/dL (<13); Alkaline Phosphatase 80 U/L (35-149); Anion Gap 6 mmol/L (2-11); Blood Urea Nitrogen 5 mg/dL (6-24); CO2 Carbon Dioxide 30 mmol/L (22-32); Calcium 9.5 mg/dL (8.6-10.3); Chloride 106 mmol/L (101-111); Glucose 73 mg/dL (70-100); Potassium 3.8 mmol/L (3.5-5.0); Salicylate < 2.50 mg/dL (<30); Sodium 142 mmol/L (135-145); Total Protein 7.5 g/dL (6.4-8.9); eGFR CKD-EPI 112.7 (>60)
[2022-04-01 12:17] LABS: Urine Appearance Clear; Urine Bilirubin Negative (Negative); Urine Blood Negative (Negative); Urine Color Yellow; Urine Glucose Negative (Negative); Urine Ketones Negative (Negative); Urine Nitrite Negative (Negative); Urine Protein Negative (Negative); Urine Specific Gravity 1.015 (1.005-1.030); Urine Urobilinogen 0.2 (Negative) (Negative); Urine pH 7.5 (5.0-9.0)
[2022-04-01 12:20] LABS: Urine Benzodiazepine Screen None Detected (None Detect); Urine Cannabinoids Screen Presumptive Positive (None Detect); Urine Opiates Screen None Detected (None Detect)
[2022-04-01] MEDS ORDERED: Al Hydrox/Mg Hydrox/Simet LIQ 30 ML UDC PO PRN (13:09)
[2022-04-01] MEDS ORDERED: LORazepam 2 mg VIAL 1 ml ONE (15:04)
[2022-04-01] MEDS ORDERED: Nicotine GUM 2MG FRUIT FLAVOR PO ONE (16:41)
[2022-04-01] MEDS: Nicotine GUM 2MG FRUIT FLAVOR PO PRN ×2 (16:45→18:35)
[2022-04-02] MEDS: Nicotine GUM 2MG FRUIT FLAVOR PO PRN ×7 (01:42→21:56)
[2022-04-02] MEDS ORDERED: Nicotine PATCH 14 MG/24 HR PATCH TRANSDERM SCH (09:00)
[2022-04-03] MEDS: Nicotine GUM 2MG FRUIT FLAVOR PO PRN ×5 (08:14→23:24)
[2022-04-03] MEDS ORDERED: Nicotine PATCH 21 MG/24 HR PATCH ONE (09:35)
[2022-04-03] MEDS: Nicotine PATCH 21 MG/24 HR PATCH TRANSDERM SCH (13:48)
[2022-04-04] MEDS: Nicotine PATCH 21 MG/24 HR PATCH TRANSDERM SCH (07:33)
[2022-04-04] MEDS: Nicotine GUM 2MG FRUIT FLAVOR PO PRN ×5 (07:34→20:45)
[2022-04-04] MEDS: Buprenorp/Nalox 4-1 MG FILM SL FILM SCH (15:01)
[2022-04-04] MEDS ORDERED: OLANZapine IM (NF) 10 MG VIAL IM ONE (15:13)
[2022-04-05] MEDS: Nicotine GUM 2MG FRUIT FLAVOR PO PRN ×4 (07:25→17:27)
[2022-04-05] MEDS: Nicotine PATCH 21 MG/24 HR PATCH TRANSDERM SCH (08:25)
[2022-04-05] MEDS: Buprenorp/Nalox 4-1 MG FILM SL FILM SCH ×2 (08:26→13:27)
[2022-04-06] MEDS: Nicotine GUM 2MG FRUIT FLAVOR PO PRN ×4 (08:28→17:31)
[2022-04-06] MEDS: Nicotine PATCH 21 MG/24 HR PATCH TRANSDERM SCH (09:17)
[2022-04-07] MEDS: Nicotine GUM 2MG FRUIT FLAVOR PO PRN ×3 (07:30→15:49)
[2022-04-07] MEDS: Nicotine PATCH 21 MG/24 HR PATCH TRANSDERM SCH (08:10)
[2022-04-08] MEDS: Nicotine GUM 2MG FRUIT FLAVOR PO PRN ×3 (07:22→20:46)
[2022-04-08] MEDS: Nicotine PATCH 21 MG/24 HR PATCH TRANSDERM SCH (07:23)
[2022-04-08] MEDS ORDERED: OLANZapine IM (NF) 10 MG VIAL IM ONE (12:38)
[2022-04-08] MEDS ORDERED: OLANZapine IM (NF) 10 MG VIAL IM PRN (14:12)
[2022-04-09] MEDS: Nicotine PATCH 21 MG/24 HR PATCH TRANSDERM SCH (08:51)
[2022-04-09] MEDS: Nicotine GUM 2MG FRUIT FLAVOR PO PRN ×3 (08:54→18:48)
[2022-04-10] MEDS: Nicotine GUM 2MG FRUIT FLAVOR PO PRN ×4 (02:47→17:26)
[2022-04-10] MEDS: Nicotine PATCH 21 MG/24 HR PATCH TRANSDERM SCH (07:34)
[2022-04-11] MEDS: Nicotine GUM 2MG FRUIT FLAVOR PO PRN ×3 (08:21→20:49)
[2022-04-11] MEDS: Nicotine PATCH 21 MG/24 HR PATCH TRANSDERM SCH (08:22)
[2022-04-12] MEDS: Nicotine GUM 2MG FRUIT FLAVOR PO PRN ×2 (08:29→16:23)
[2022-04-12] MEDS: Nicotine PATCH 21 MG/24 HR PATCH TRANSDERM SCH (12:21)
[2022-04-13] MEDS: Nicotine GUM 2MG FRUIT FLAVOR PO PRN ×3 (06:46→21:06)
[2022-04-13] MEDS: Nicotine PATCH 21 MG/24 HR PATCH TRANSDERM SCH (09:38)
[2022-04-14] MEDS: Nicotine GUM 2MG FRUIT FLAVOR PO PRN (08:49)
[2022-04-14] MEDS: Nicotine PATCH 21 MG/24 HR PATCH TRANSDERM SCH (08:50)
[2022-04-14] MEDS ORDERED: OLANZapine IM (NF) 10 MG VIAL IM PRN (13:19)
[2022-04-15] MEDS: Nicotine PATCH 21 MG/24 HR PATCH TRANSDERM SCH (08:47)
[2022-04-15] MEDS: Nicotine GUM 2MG FRUIT FLAVOR PO PRN ×2 (10:10→12:24)
[2022-04-16] MEDS: Nicotine PATCH 21 MG/24 HR PATCH TRANSDERM SCH (08:25)
[2022-04-16] MEDS: Nicotine GUM 2MG FRUIT FLAVOR PO PRN ×2 (12:32→19:16)
[2022-04-17] MEDS: Nicotine GUM 2MG FRUIT FLAVOR PO PRN ×3 (08:30→18:03)
[2022-04-17] MEDS: Nicotine PATCH 21 MG/24 HR PATCH TRANSDERM SCH (08:51)
[2022-04-17] MEDS ORDERED: OLANZapine IM (NF) 10 MG VIAL IM ONE (10:56)
[2022-04-18] MEDS: Nicotine GUM 2MG FRUIT FLAVOR PO PRN (08:32)
[2022-04-18] MEDS: Nicotine PATCH 21 MG/24 HR PATCH TRANSDERM SCH (08:55)
[2022-04-19] MEDS: Nicotine GUM 2MG FRUIT FLAVOR PO PRN ×2 (04:33→17:33)
[2022-04-19] MEDS: Nicotine PATCH 21 MG/24 HR PATCH TRANSDERM SCH (08:37)
[2022-04-20] MEDS: Nicotine GUM 2MG FRUIT FLAVOR PO PRN ×2 (08:28→17:51)
[2022-04-20] MEDS: Nicotine PATCH 21 MG/24 HR PATCH TRANSDERM SCH (11:06)
[2022-04-21] MEDS: Nicotine GUM 2MG FRUIT FLAVOR PO PRN ×2 (08:23→19:00)
[2022-04-21] MEDS: Nicotine PATCH 21 MG/24 HR PATCH TRANSDERM SCH (08:52)
[2022-04-22] MEDS: Nicotine GUM 2MG FRUIT FLAVOR PO PRN ×2 (08:38→11:43)
[2022-04-22] MEDS: Nicotine PATCH 21 MG/24 HR PATCH TRANSDERM SCH (08:39)
[2022-04-22 08:59] VITALS: BP 101/61
== END 2022-04-22 12:15 | DRG 750 ==
LOC: ED 14:09 → EDHOLD 04-01 13:09 → BSU 04-01 15:15
PROVIDERS: ADMIT Psychiatry & Neurology Psychiatry; ATTEND Psychiatry & Neurology Psychiatry